=== PATIENT | female | born 1960 | race Caucasian/White ===

== ENCOUNTER 2021-01-30 18:59 | Inpatient (IN) ==
[2021-01-30 19:09] VITALS: BMI 24.9
--- NOTE | 2021-01-30 20:19 | DR.SOBA ---
HPI Time Seen Time Seen by Provider: 01/30/21 20:16 Primary Care Physician Primary Care Physician: WENDI Complaints Chief Complaint:: PT IN ED VIA WHEELCHAIR WITH C/O LOW OXYGEN SATURATION. PT O2 SAT 56-61% ON ROOM AIR AT HOME. PT O2 SAT IN TRIAGE 68% ON ROOM AIR. PLACED ON 5L/NC SAT UP TO 89-90%. COVID-19 Coronavirus risk:travel/contact w/high risk person: Yes Has patient experienced Coronavirus symptoms: Yes Coronavirus symptoms experienced: Coughing and Shortness of Breath Source History Provided: Patient and Family Member Mode of Arrival Mode of Arrival: Wheelchair Timing Onset of Chief Complaint: 01/30/21 PMH PMH Past Medical History: Yes Past Medical History: Coronary Artery Disease, Diabetes, Hypertension and DC Past Surgical History: Yes Surgical History: Angioplasty/Stents and Cholecystectomy Family History History of Family Medical Conditions: Yes Family Medical History: [place], Heart Failure and Hypertension Social History Does patient currently use any type of tobacco product: No Have you used tobacco products in the last 12 months: No Type of Tobacco Use: None Does any household member use tobacco: No Alcohol Use: None Do you use any recreational Drugs:: No Lives With: Family Lives Where: Home Travel Risk Coronavirus risk:travel/contact w/high risk person: Yes Has patient experienced Coronavirus symptoms: Yes Coronavirus symptoms experienced: Coughing and Shortness of Breath Infectious screening In the last 2 months have you had wt loss of >10#?: NO Have you had fever, night sweats or hemotysis?: No Have you traveled outside the country in the last 6 months?: No Isolation: Droplet PE Vital Signs Vitals: Temperature 97.4 F Pulse Rate [Left Brachial] 54 Pulse Rate 54 Respiratory Rate 21 Blood Pressure [Left Arm] 205/94 Blood Pressure 171/102 O2 Sat by Pulse Oximetry 94 ROR Labs Reviewed Result Diagrams: 01/30/21 20:34 01/30/21 20:34 Laboratory: WBC 5.9 X10^3/uL (3.6-10.0) 01/30/21 20:34 RBC 4.86 X10^6/uL (3.5-5.4) 01/30/21 20:34 Hgb 14.7 g/dL (12.0-16.0) 01/30/21 20:34 Hct 43.9 % (36.0-47.0) 01/30/21 20:34 MCV 90.2 fL (80.0-100.0) 01/30/21 20:34 MCH 30.3 pg (27.0-34.0) 01/30/21 20: MCHC 33.6 g/dL (33.0-35.0) 01/30/21 20:34 RDW 13.8 % (11.6-16.5) 01/30/21 20:34 Plt Count 286 X10^3/uL (150.0-450.0) 01/30/21 20:34 MPV 7.0 fL (7.4-11.0) L 01/30/21 20:34 Neut % (Auto) 82.1 % (42.0-75.0) H 01/30/21 20: Lymph % (Auto) 12.4 % (21.0-51.0) L 01/30/21 20:34 [place] % (Auto) 5.4 % (0.0-13.0) 01/30/21 20:34 Eos % (Auto) 0.0 % (0.9-2.9) L 01/30/21 20:34 Baso % (Auto) 0.1 % (0.2-1.0) L 01/30/21 20:34 Neut # (Auto) 4.9 x10^3/uL (2.2-4.8) H 01/30/21 20:34 Lymph # (Auto) 0.7 X10^3/uL (1.3-2.9) L 01/30/21 20:34 [place] # (Auto) 0.3 x10^3/uL (0.3-0.8) 01/30/21 20:34 Eos # (Auto) 0.0 x10^3/uL (0.0-0.2) 01/30/21 20:34 Baso # (Auto) 0.0 X10^3/uL (0.0-0.1) 01/30/21 20:34 Absolute Nucleated RBC 0.1 /100WBC 01/30/21 20:34 Sample Site Lrad 01/30/21 22:37 ABG pH 7.560 (7.35-7.45) H* 01/30/21 22:37 ABG pCO2 31.0 mmHg (35.0-45.0) L 01/30/21 22:37 ABG pO2 98.0 mmHg (80.0-100.0) 01/30/21 22:37 ABG HCO3 27.8 mmol/L (22-26) H 01/30/21 22:37 ABG O2 Saturation 98.0 % (90-100) 01/30/21 22:37 ABG Base Excess 5.8 mmol/L (-2.0-2.0) H 01/30/21 22:37 Juan Carlos Test Pos 01/30/21 22:37 A-a Gradient 576.0 mmHg 01/30/21 22:37 FiO2 100.0 01/30/21 22:37 Blood Gas Comments Narciso well 01/30/21 22:37 Sodium 136 mmol/L (136-145) 01/30/21 20:34 Corrected Sodium 144 mmol/L (136-145) 01/30/21 20:34 Potassium 4.3 mmol/L (3.5-5.1) 01/30/21 20:34 Chloride 98 mmol/L (98-107) 01/30/21 20:34 Carbon Dioxide 28.0 mmol/L (21-32) 01/30/21 20:34 BUN 37 mg/dL (7-18) H 01/30/21 20:34 Creatinine 1.26 mg/dL (0.55-1.02) H 01/30/21 20:34 Est GFR (MDRD) Af Amer 56 (>60) L 01/30/21 20:34 Est GFR (MDRD) Non-Af 46 (>60) L 01/30/21 20:34 Glucose 415 mg/dL (65-99) H 01/30/21 20:34 Calcium 9.7 mg/dL (8.5-10.1) 01/30/21 20:34 Corrected Calcium 11.0 mg/dL (8.5-10.1) H 01/30/21 20:34 Total Bilirubin 0.30 mg/dL (0.2-1.0) 01/30/21 20:34 AST 68 Units/L (15-37) H 01/30/21 20:34 ALT 52 Units/L (12-78) 01/30/21 20:34 Alkaline Phosphatase 70 Units/L (46-116) 01/30/21 20:34 Total Protein 7.8 g/dL (6.4-8.2) 01/30/21 20:34 Albumin 2.4 g/dL (3.4-5.0) L 01/30/21 20:34 Globulin 5.4 g/dL (2.5-4.5) H 01/30/21 20:34 Albumin/Globulin Ratio 0.4 Ratio (1.1-2.1) L 01/30/21 20:34 Opioid Opioid Risk Tool Age (Dario box if 16-45): No History of Preadolescent Sexual Abuse: No Total: 0 Total Score Risk Category: Low Risk Copyright: Milton AVALOS predicting aberrant behaviors Diagnosis Discharge Problem: Hypoxia, COVID-19 virus infection Pneumonia Qualifiers: Pneumonia type: due to unspecified organism Laterality: bilateral Lung location: lower lobe of lung Qualified Code(s): J18.9 - Pneumonia, unspecified organism Instructions Forms: Precautions for COVID19 Patient Portal Social Distancing
[2021-01-30 20:51] LABS: BASOPHILS % (AUTO) 0.1 % (0.2-1.0); HEMATOCRIT 43.9 % (36.0-47.0); HEMOGLOBIN 14.7 g/dL (12.0-16.0); LYMPHOCYTES # (AUTO) 0.7 X10^3/uL (1.3-2.9); LYMPHOCYTES % (AUTO) 12.4 % (21.0-51.0); MEAN CORPUSCULAR HEMOGLOBIN 30.3 pg (27.0-34.0); MEAN CORPUSCULAR HGB CONC 33.6 g/dL (33.0-35.0); MEAN CORPUSCULAR VOLUME 90.2 fL (80.0-100.0); MONOCYTES # (AUTO) 0.3 x10^3/uL (0.3-0.8); MONOCYTES % (AUTO) 5.4 % (0.0-13.0); NEUTROPHILS # (AUTO) 4.9 x10^3/uL (2.2-4.8); NEUTROPHILS % (AUTO) 82.1 % (42.0-75.0); PLATELET COUNT 286 X10^3/uL (150.0-450.0); RED BLOOD COUNT 4.86 X10^6/uL (3.5-5.4); RED CELL DISTRIBUTION WIDTH 13.8 % (11.6-16.5); WHITE BLOOD COUNT 5.9 X10^3/uL (3.6-10.0)
--- NOTE | 2021-01-30 20:59 | RAD ---
STUDY: CHEST, 1 VIEWCOMPARISON: NoneHISTORY: PT IN ED VIA WHEELCHAIR WITH C/O LOW OXYGEN SATURATION. PT O2 SAT 56-61% ON ROOM AIR AT HOME. PT O2 SAT IN TRIAGE 68% ON ROOM AIR. PLACED ON 5L/NC SAT UP TO 89-90%.FINDINGS:Interval development of worsening alveolar airspace disease throughout the right lung and left lower lung zone.Cardiomediastinal contour is stable.No pleural effusion or gross pneumothorax is seen. Trachea is midline.IMPRESSION:Interval development of worsening alveolar airspace disease throughout the right lung and left lower lung zone. This is worrisome for progression of COVID-19 pneumonia.Electronically signed by: Luca Aquino (Jan 30, 2021 20:57:56)
[2021-01-30 21:02] LABS: ALBUMIN 2.4 g/dL (3.4-5.0); CALCIUM 9.7 mg/dL (8.5-10.1); CREATININE 1.26 mg/dL (0.55-1.02); TOTAL PROTEIN 7.8 g/dL (6.4-8.2)
[2021-01-30 22:45] LABS: ABG BASE EXCESS 5.8 mmol/L (-2.0-2.0); ABG HCO3 27.8 mmol/L (22-26)
[2021-01-30 22:46] LABS: ABG ALLEN TEST POS
[2021-01-31] MEDS ORDERED: REMDESIVIR 200 MG in NS 250 ML IV 250 ML IV ONE (07:02)
[2021-01-31 08:25] LABS: BASOPHILS % (AUTO) 0.1 % (0.2-1.0); HEMATOCRIT 43.1 % (36.0-47.0); HEMOGLOBIN 14.6 g/dL (12.0-16.0); LYMPHOCYTES # (AUTO) 0.9 X10^3/uL (1.3-2.9); LYMPHOCYTES % (AUTO) 16.4 % (21.0-51.0); MEAN CORPUSCULAR HEMOGLOBIN 30.6 pg (27.0-34.0); MEAN CORPUSCULAR HGB CONC 33.8 g/dL (33.0-35.0); MEAN CORPUSCULAR VOLUME 90.5 fL (80.0-100.0); MEAN PLATELET VOLUME 6.9 fL (7.4-11.0); MONOCYTES # (AUTO) 0.4 x10^3/uL (0.3-0.8); MONOCYTES % (AUTO) 7.9 % (0.0-13.0); NEUTROPHILS % (AUTO) 75.6 % (42.0-75.0); PLATELET COUNT 331 X10^3/uL (150.0-450.0); RED BLOOD COUNT 4.76 X10^6/uL (3.5-5.4); RED CELL DISTRIBUTION WIDTH 13.8 % (11.6-16.5); WHITE BLOOD COUNT 5.3 X10^3/uL (3.6-10.0)
[2021-01-31 08:30] LABS: ALANINE AMINOTRANSFERASE 53 Units/L (12-78); ALBUMIN 2.4 g/dL (3.4-5.0); ALKALINE PHOSPHATASE 66 Units/L (46-116); ASPARTATE AMINO TRANSFERASE 53 Units/L (15-37); BLOOD UREA NITROGEN 38 mg/dL (7-18); CALCIUM 9.8 mg/dL (8.5-10.1); CARBON DIOXIDE 32.3 mmol/L (21-32); CHLORIDE 100 mmol/L (98-107); COR CA(FOR HYPOALB) 11.1 mg/dL (8.5-10.1); COR NA(FOR HYPERGLY) 147 mmol/L (136-145); CREATININE 1.17 mg/dL (0.55-1.02); SODIUM 140 mmol/L (136-145); TOTAL PROTEIN 7.5 g/dL (6.4-8.2); eGFR NON BLACK RACES 50 (>60)
[2021-01-31] MEDS ORDERED: PEPCID TAB 40 MG ONE (08:41)
[2021-01-31] MEDS ORDERED: VITAMIN D3 125 mcg (5,000 UNITS) ONE (08:41)
[2021-01-31] MEDS ORDERED: ZINC SULFATE ONE (08:41)
[2021-01-31] MEDS ORDERED: TRICOR TAB 160 MG ONE (08:41)
[2021-01-31] MEDS ORDERED: REMDESIVIR IV ONE (08:41)
[2021-01-31] MEDS ORDERED: NS 100 ML IV 100 ML ONE ×3 (08:42→16:33)
[2021-01-31] MEDS ORDERED: NS 1000 ML 1,000 ML ONE (08:42)
[2021-01-31] MEDS ORDERED: NS 100 ML IV + SPIKE MINIBAG* 100 ML IV ONE (08:42)
[2021-01-31] MEDS ORDERED: ZOSYN VIAL 3.375 GRAMS IV ONE (08:42)
[2021-01-31] MEDS ORDERED: LOVENOX INJ 30 MG SYR SC ONE (08:42)
[2021-01-31] MEDS ORDERED: NS 250 ML IV 250 ML IV ONE (08:43)
[2021-01-31] MEDS ORDERED: ASCORBIC ACID INJ MULTI-DOSE VIAL IV ONE ×2 (08:44→15:03)
[2021-01-31] MEDS: NS 1000 ML 1,000 ML IV SCH ×2 (08:48→08:56)
[2021-01-31] MEDS: ZOSYN VIAL 3.375 GRAMS 3.375 G in NS 100 ML IV + SPIKE MINIBAG* 100 ML IV SCH ×3 (08:49→21:40)
[2021-01-31] MEDS: ASCORBIC ACID INJ MULTI-DOSE VIAL 1,500 MG in NS 100 ML IV 100 ML IV SCH ×3 (08:51→21:36)
[2021-01-31] MEDS: ZINC SULFATE PO SCH ×2 (08:51→21:40)
[2021-01-31] MEDS: TRICOR TAB 160 MG PO SCH (08:53)
[2021-01-31] MEDS: LOVENOX INJ 30 MG SYR SC SCH ×2 (08:56→21:39)
[2021-01-31] MEDS ORDERED: ROBITUSSIN DM ONE ×2 (08:58→15:02)
[2021-01-31] MEDS ORDERED: PEPCID TAB 20 MG ONE (08:58)
[2021-01-31] MEDS ORDERED: VITAMIN D (1.25MG) PO SCH (09:00)
[2021-01-31] MEDS ORDERED: PEPCID TAB 40 MG PO SCH (09:00)
[2021-01-31] MEDS ORDERED: VITAMIN A PO SCH (09:00)
[2021-01-31] MEDS ORDERED: BROVANA IN SCH (09:00)
[2021-01-31] MEDS ORDERED: PULMICORT NEB TX 0.5 MG NEB SCH (09:00)
[2021-01-31] MEDS ORDERED: ZITHROMAX INJ 500 MG VIAL IV ONE (09:02)
[2021-01-31] MEDS: PEPCID TAB 20 MG PO SCH (09:03)
[2021-01-31] MEDS: ROBITUSSIN DM PO SCH ×5 (09:03→21:40)
[2021-01-31] MEDS: ZITHROMAX INJ 500 MG VIAL 500 MG in NS 250 ML IV 250 ML IV SCH (09:08)
[2021-01-31] MEDS: REMDESIVIR 100 MG in NS 100 ML IV + SPIKE MINIBAG* 120 ML IV SCH (09:10)
[2021-01-31] MEDS: BROVANA IN SCH ×2 (09:35→20:52)
[2021-01-31] MEDS: PULMICORT NEB TX 0.5 MG NEB SCH ×2 (09:35→20:52)
[2021-01-31] MEDS ORDERED: LOPRESSOR INJ 5 MG AMP IVP ONE (11:41)
[2021-01-31] MEDS ORDERED: HumuLIN R ONE (12:28)
[2021-01-31] MEDS: HumuLIN R SC PRN ×4 (12:29→21:41)
[2021-01-31 13:04] LABS: CKMB % 4.6 % (<4); CREATINE KINASE 22 Units/L (26-192); CREATINE KINASE MB < 1.0 ng/mL (0-4.0); TROPONIN I < 0.02 ng/mL (0-1.5)
[2021-01-31] MEDS ORDERED: VERSED ONE (13:41)
[2021-01-31] MEDS ORDERED: XYLOCAINE 1 % (PLAIN) ONE ×2 (14:41→15:46)
[2021-01-31] MEDS ORDERED: PLAVIX ONE (15:01)
[2021-01-31] MEDS ORDERED: ZESTRIL TAB 20 MG ONE (15:02)
[2021-01-31] MEDS ORDERED: SOLU-Medrol 125 MG VIAL ONE (15:02)
[2021-01-31] MEDS: PLAVIX PO SCH ×2 (15:05→15:11)
[2021-01-31] MEDS: GLUCOPHAGE PO SCH ×2 (15:05→15:06)
[2021-01-31] MEDS: SOLU-Medrol 125 MG VIAL IVP SCH ×3 (15:06→21:40)
[2021-01-31] MEDS: ZESTRIL TAB 40 MG PO SCH (15:06)
[2021-01-31] MEDS ORDERED: NS 50 ML IV 50 ML IV ONE (15:13)
[2021-01-31] MEDS ORDERED: APRESOLINE INJ 20 MG VIAL ONE (16:23)
[2021-01-31] MEDS: APRESOLINE INJ 20 MG VIAL IVP PRN (16:47)
--- NOTE | 2021-01-31 17:14 | CT ---
CTA CHESTCLINICAL INDICATION: FaciaPROCEDURE: Non gated axial images of the chest were obtained with intravenous contrast according to pulmonary embolism protocol. MIPS were reconstructed Dose reduction techniques including Automated Exposure Control (AEC) and adjustment of mA and kV were utlized.COMPARISON:NoneFINDINGS:No evidence of a pulmonary embolism to the level of the segmental pulmonary arteries.Cardiomegaly. Severe coronary calcification.. No pericardial effusion . Patchy bilateral ground-glass opacities are present. No suspicious mediastinal or axillary lymph nodes. More consolidative opacities at the lung bases..Airways are patent . No suspicious pulmonary nodules or masses .Limited images of the upper abdomen are unremarkable.No aggressive osseous lesions.IMPRESSION:1. No evidence of pulmonary embolism.2. Patchy bilateral ground-glass opacities consistent with acute, atypical infection including viral etiologies.Electronically signed by: MADELINE HAIRSTON (Jan 31, 2021 17:12:04)
--- NOTE | 2021-01-31 18:11 | DR.H&P ---
H&P - History & Physical for Day of: H&P Date: 01/31/21 - Chief Complaint Chief Complaint: sob, ccc, fever, covid 19+ - History of Present Illness History of Present Illness: PT IN ED VIA WHEELCHAIR WITH C/O LOW OXYGEN SATURATION. PT O2 SAT 56-61% ON ROOM AIR AT HOME. PT O2 SAT IN TRIAGE 68% ON ROOM AIR. PLACED ON 5L/NC SAT UP TO 89-90%. PT IS COVID 19+ WITH PNEUMONIA. PT ADMITTED FOR TREATMENT OF ACUTE ILLNESS. - Past Medical History Past Medical History: Anxiety, Arthritis, Coronary Artery Disease, Diabetes, Hypertension, AR - Past Surgical History Surgical History: Angioplasty/Stents, Cholecystectomy - Family History Family Medical History: AR, Heart Failure, Hypertension - Social History Does patient currently use any type of tobacco product: No Have you used tobacco products in the last 12 months: No Type of Tobacco Use: None Does any household member use tobacco: No Alcohol Use: None - Medications Home Medications: morphine Allergy (Verified 01/29/21 19:07) CONTINUE taking the following medications alprazolam 0.5 mg PO DAILY 01/31/21 [History] atenolol-chlorthalidone 1 tab PO DAILY 01/31/21 [History] clonidine HCl 0.2 mg PO HS 01/31/21 [History] clopidogrel 75 mg PO DAILY 01/31/21 [History] diclofenac sodium 75 mg PO BID 01/31/21 [History] fenofibrate 160 mg PO DAILY 01/31/21 [History] fluoxetine 20 mg PO DAILY 01/31/21 [History] fluoxetine 20 mg PO DAILY 01/31/21 [History] gabapentin 100 mg PO TID 01/31/21 [History] insulin detemir U-100 [Levemir U-100 Insulin] 100 unit SUBCUT DAILY 01/31/21 [History] lisinopril 40 mg PO DAILY 01/31/21 [History] lovastatin 20 mg PO DAILY 01/31/21 [History] metformin 500 mg PO BID 01/31/21 [History] - Review of Systems Constitutional: Chills, Weakness, Malaise Eyes: No Symptoms Reported ENT: No Symptoms Reported Respiratory: Cough, Shortness of Breath, SOB with Excertion, Sputum, Wheezing Cardiovascular: Chest Pain Gastrointestinal: Nausea Genitourinary: No Symptoms Reported Musculoskeletal: Back Pain Skin: No Symptoms Reported Neurological: No Symptoms Reported - Physical Exam Vital Signs: Temperature 97.4 F Pulse Rate [Left Brachial] 52 Pulse Rate 50 Respiratory Rate 22 Blood Pressure [Left Arm] 198/98 Blood Pressure 208/88 O2 Sat by Pulse Oximetry 91 Oriented: Normal Eyes: Normal Ear: Normal Nose: Normal Throat: Normal Respiratory: RLL Diminished, LLL Diminished Cardiovascular: Tachycardia, Edema : Normal Auscultation: Bowel Sounds: Normal Palpation: Normal Tenderness: Normal Skin: Decreased Turgur Musculoskeletal: Back:Lumbar Psychiatric: Anxiety Affect: Anxious Speech Pattern: Clear, Appropriate - Assessment/Plan (1) Pneumonia due to COVID-19 virus Status: Acute Plan: ADMIT, COVID ISOLATION UNIT. IV REMDESIVIR, IV ATBX, RESP THERAPY. SUPPLEMENTAL O2, CTA CHEST ON ADMISSION. LOVENOX THERAPY, CARDIAC MONITORING. STRICT I&OS, VERIFY HOME MEDICATION. BP CONTROL, BS CONTROL (2) CAD (coronary artery disease) Status: Acute (3) Hypertension Status: Acute (4) Acute hypokalemia Status: Acute - Allergies Allergies/Adverse Reactions: Allergies Allergy/AdvReac Type Severity Reaction Status Date / Time morphine Allergy Verified 01/29/21 19:07
[2021-01-31 18:56] LABS: CKMB % 4.4 % (<4); CREATINE KINASE 23 Units/L (26-192); CREATINE KINASE MB < 1.0 ng/mL (0-4.0); TROPONIN I < 0.02 ng/mL (0-1.5)
[2021-01-31 23:59] LABS: CKMB % 4.4 % (<4); CREATINE KINASE 23 Units/L (26-192); CREATINE KINASE MB < 1.0 ng/mL (0-4.0); TROPONIN I < 0.02 ng/mL (0-1.5)
[2021-02-01] MEDS: APRESOLINE INJ 20 MG VIAL IVP PRN ×3 (00:12→22:42)
[2021-02-01] MEDS: ASCORBIC ACID INJ MULTI-DOSE VIAL 1,500 MG in NS 100 ML IV 100 ML IV SCH ×4 (02:57→21:30)
[2021-02-01] MEDS: SOLU-Medrol 125 MG VIAL IVP SCH ×3 (05:16→21:31)
[2021-02-01] MEDS: ZOSYN VIAL 3.375 GRAMS 3.375 G in NS 100 ML IV + SPIKE MINIBAG* 100 ML IV SCH ×3 (05:17→22:04)
[2021-02-01] MEDS: HumuLIN R SC PRN ×3 (05:42→22:04)
[2021-02-01 07:47] LABS: BASOPHILS % (AUTO) 0.1 % (0.2-1.0); HEMATOCRIT 44.4 % (36.0-47.0); HEMOGLOBIN 14.7 g/dL (12.0-16.0); LYMPHOCYTES # (AUTO) 0.8 X10^3/uL (1.3-2.9); LYMPHOCYTES % (AUTO) 10.8 % (21.0-51.0); MEAN CORPUSCULAR HGB CONC 33.2 g/dL (33.0-35.0); MEAN CORPUSCULAR VOLUME 90.3 fL (80.0-100.0); MEAN PLATELET VOLUME 6.7 fL (7.4-11.0); MONOCYTES # (AUTO) 0.6 x10^3/uL (0.3-0.8); MONOCYTES % (AUTO) 7.9 % (0.0-13.0); NEUTROPHILS # (AUTO) 5.8 x10^3/uL (2.2-4.8); NEUTROPHILS % (AUTO) 81.2 % (42.0-75.0); PLATELET COUNT 453 X10^3/uL (150.0-450.0); RED BLOOD COUNT 4.91 X10^6/uL (3.5-5.4); RED CELL DISTRIBUTION WIDTH 13.7 % (11.6-16.5); WHITE BLOOD COUNT 7.1 X10^3/uL (3.6-10.0)
[2021-02-01 07:57] LABS: ALANINE AMINOTRANSFERASE 54 Units/L (12-78); ALBUMIN 2.5 g/dL (3.4-5.0); ALKALINE PHOSPHATASE 66 Units/L (46-116); ASPARTATE AMINO TRANSFERASE 43 Units/L (15-37); BLOOD UREA NITROGEN 25 mg/dL (7-18); CALCIUM 9.3 mg/dL (8.5-10.1); CARBON DIOXIDE 29.4 mmol/L (21-32); CHLORIDE 103 mmol/L (98-107); COR CA(FOR HYPOALB) 10.5 mg/dL (8.5-10.1); COR NA(FOR HYPERGLY) 149 mmol/L (136-145); CREATININE 1.06 mg/dL (0.55-1.02); SODIUM 144 mmol/L (136-145); TOTAL PROTEIN 7.3 g/dL (6.4-8.2); eGFR NON BLACK RACES 57 (>60)
[2021-02-01] MEDS ORDERED: LEVEMIR SC ONE (08:27)
[2021-02-01 08:45] LABS: HEMOGLOBIN A1C 11.9 %
[2021-02-01] MEDS ORDERED: REMDESIVIR 100 MG in NS 100 ML IV + SPIKE MINIBAG* 120 ML IV SCH (09:00)
[2021-02-01] MEDS: REMDESIVIR 100 MG in NS 100 ML IV + SPIKE MINIBAG* 120 ML IV SCH (09:05)
[2021-02-01] MEDS: ZITHROMAX INJ 500 MG VIAL 500 MG in NS 250 ML IV 250 ML IV SCH (09:07)
[2021-02-01] MEDS: LIPITOR TAB 10 MG PO SCH (09:08)
[2021-02-01] MEDS: LOVENOX INJ 30 MG SYR SC SCH ×2 (09:08→21:30)
[2021-02-01] MEDS: ZESTRIL TAB 40 MG PO SCH (09:08)
[2021-02-01] MEDS: PLAVIX PO SCH (09:08)
[2021-02-01] MEDS: ZINC SULFATE PO SCH ×2 (09:08→21:30)
[2021-02-01] MEDS: PEPCID TAB 20 MG PO SCH (09:08)
[2021-02-01] MEDS: ROBITUSSIN DM PO SCH ×4 (09:09→21:30)
[2021-02-01] MEDS: TRICOR TAB 160 MG PO SCH ×2 (09:09→18:31)
[2021-02-01] MEDS: BROVANA IN SCH ×2 (09:37→21:00)
[2021-02-01] MEDS: PULMICORT NEB TX 0.5 MG NEB SCH ×2 (09:37→21:00)
[2021-02-01] MEDS: NS 1000 ML 1,000 ML IV SCH (11:22)
[2021-02-01 14:47] LABS: ABG BASE EXCESS 10.2 mmol/L (-2.0-2.0)
[2021-02-01 14:50] LABS: ABG HCO3 33.1 mmol/L (22-26)
[2021-02-01] MEDS ORDERED: BENADRYL INJ 50 MG VIAL IVP PRN (17:46)
[2021-02-01] MEDS ORDERED: LEVEMIR SC SCH (18:00)
[2021-02-01] MEDS: NORVASC TAB 5 MG PO SCH (18:30)
[2021-02-01] MEDS: PROTONIX INJ 40 MG VIAL IVP SCH (18:30)
[2021-02-01] MEDS: PROzac PO SCH (18:31)
[2021-02-01] MEDS ORDERED: POTASSIUM CHLORIDE LIQ 20 MEQ UDC PO PRN (19:19)
[2021-02-01] MEDS ORDERED: MICRO K EXTEN CAP 10 MEQ PO PRN (19:19)
[2021-02-01] MEDS ORDERED: POTASSIUM CHL 40 MEQ/NS 0.45% 500 ML IV PRN (19:19)
[2021-02-01] MEDS ORDERED: POTASSIUM CHL 60 MEQ/NS 0.45% 500 ML IV PRN (19:19)
[2021-02-01] MEDS ORDERED: SNACK - Diabetic Appropriate PO SCH (20:00)
[2021-02-01] MEDS: SNACK - Diabetic Appropriate PO SCH (20:11)
[2021-02-01] MEDS: K-DUR TAB 20 MEQ PO PRN (21:31)
[2021-02-02] MEDS: XANAX PO PRN ×2 (00:03→22:21)
[2021-02-02] MEDS: ASCORBIC ACID INJ MULTI-DOSE VIAL 1,500 MG in NS 100 ML IV 100 ML IV SCH ×4 (02:25→21:00)
[2021-02-02] MEDS: APRESOLINE INJ 20 MG VIAL IVP PRN ×3 (03:50→21:47)
[2021-02-02] MEDS: ZOSYN VIAL 3.375 GRAMS 3.375 G in NS 100 ML IV + SPIKE MINIBAG* 100 ML IV SCH ×3 (06:05→21:53)
[2021-02-02] MEDS: SOLU-Medrol 125 MG VIAL IVP SCH ×3 (06:05→21:53)
[2021-02-02] MEDS: NS 1000 ML 1,000 ML IV SCH ×2 (06:06→21:10)
[2021-02-02] MEDS: HumuLIN R SC PRN ×4 (06:06→21:53)
[2021-02-02 06:54] LABS: BASOPHILS % (AUTO) 0.1 % (0.2-1.0); HEMATOCRIT 40.4 % (36.0-47.0); HEMOGLOBIN 13.6 g/dL (12.0-16.0); LYMPHOCYTES # (AUTO) 0.6 X10^3/uL (1.3-2.9); LYMPHOCYTES % (AUTO) 8.7 % (21.0-51.0); MEAN CORPUSCULAR HEMOGLOBIN 30.2 pg (27.0-34.0); MEAN CORPUSCULAR HGB CONC 33.6 g/dL (33.0-35.0); MEAN CORPUSCULAR VOLUME 89.9 fL (80.0-100.0); MEAN PLATELET VOLUME 6.7 fL (7.4-11.0); MONOCYTES # (AUTO) 0.7 x10^3/uL (0.3-0.8); MONOCYTES % (AUTO) 10.3 % (0.0-13.0); NEUTROPHILS # (AUTO) 5.6 x10^3/uL (2.2-4.8); NEUTROPHILS % (AUTO) 80.9 % (42.0-75.0); PLATELET COUNT 491 X10^3/uL (150.0-450.0); RED BLOOD COUNT 4.49 X10^6/uL (3.5-5.4); RED CELL DISTRIBUTION WIDTH 13.8 % (11.6-16.5)
[2021-02-02 07:29] LABS: ALANINE AMINOTRANSFERASE 43 Units/L (12-78); ALBUMIN 2.4 g/dL (3.4-5.0); ALKALINE PHOSPHATASE 62 Units/L (46-116); ASPARTATE AMINO TRANSFERASE 37 Units/L (15-37); BLOOD UREA NITROGEN 19 mg/dL (7-18); CALCIUM 8.7 mg/dL (8.5-10.1); CHLORIDE 108 mmol/L (98-107); COR NA(FOR HYPERGLY) 152 mmol/L (136-145); CREATININE 0.89 mg/dL (0.55-1.02); SODIUM 146 mmol/L (136-145); TOTAL PROTEIN 6.7 g/dL (6.4-8.2); eGFR NON BLACK RACES > 60 (>60)
[2021-02-02] MEDS: LOVENOX INJ 30 MG SYR SC SCH ×2 (08:53→21:52)
[2021-02-02] MEDS: ROBITUSSIN DM PO SCH ×4 (08:53→21:00)
[2021-02-02] MEDS: PROzac PO SCH (08:54)
[2021-02-02] MEDS: ZINC SULFATE PO SCH ×2 (08:54→21:00)
[2021-02-02] MEDS: PLAVIX PO SCH (08:56)
[2021-02-02] MEDS: ZESTRIL TAB 40 MG PO SCH (08:57)
[2021-02-02] MEDS: LIPITOR TAB 10 MG PO SCH (08:57)
[2021-02-02] MEDS: NORVASC TAB 5 MG PO SCH (08:58)
[2021-02-02] MEDS: GLUCOPHAGE PO SCH ×2 (08:58→21:00)
[2021-02-02] MEDS: REMDESIVIR 100 MG in NS 100 ML IV + SPIKE MINIBAG* 120 ML IV SCH (08:59)
[2021-02-02] MEDS: PROTONIX INJ 40 MG VIAL IVP SCH (08:59)
[2021-02-02] MEDS: TRICOR TAB 160 MG PO SCH (09:00)
[2021-02-02] MEDS: VITAMIN A PO SCH (09:05)
[2021-02-02] MEDS: LEVEMIR SC SCH (09:05)
[2021-02-02] MEDS: VITAMIN D3 125 mcg (5,000 UNITS) PO SCH (09:06)
--- NOTE | 2021-02-02 09:13 | RAD ---
HISTORYCOVID, SOBSTUDYCHEST x-ray, 1 VIEWCOMPARISONX-ray 01/30/2021FINDINGSImproved inspiration compared to prior study. Persistent bilateral pneumonia is likely very similar to prior study. Heart is normal in size. No pneumothorax or pleural effusion is seen. Normal variant azygos lobe is seen.IMPRESSIONPersistent moderate bilateral COVID-19 pneumonia.Electronically signed by: Gaurav Baez (Feb 02, 2021 09:12:20)
[2021-02-02] MEDS: BROVANA IN SCH ×2 (09:31→20:50)
[2021-02-02] MEDS: PULMICORT NEB TX 0.5 MG NEB SCH ×2 (09:31→20:50)
[2021-02-02] MEDS: ZITHROMAX INJ 500 MG VIAL 500 MG in NS 250 ML IV 250 ML IV SCH (10:55)
[2021-02-02] MEDS: SNACK - Diabetic Appropriate PO SCH (19:45)
[2021-02-02] MEDS ORDERED: GLUCOPHAGE ONE (20:34)
[2021-02-03] MEDS: ASCORBIC ACID INJ MULTI-DOSE VIAL 1,500 MG in NS 100 ML IV 100 ML IV SCH ×4 (02:14→21:51)
[2021-02-03] MEDS: ZOSYN VIAL 3.375 GRAMS 3.375 G in NS 100 ML IV + SPIKE MINIBAG* 100 ML IV SCH ×3 (05:38→21:51)
[2021-02-03] MEDS: SOLU-Medrol 125 MG VIAL IVP SCH ×3 (05:38→21:49)
[2021-02-03] MEDS: HumuLIN R SC PRN ×3 (05:38→17:00)
[2021-02-03 06:26] LABS: BASOPHILS % (AUTO) 0.1 % (0.2-1.0); HEMOGLOBIN 12.7 g/dL (12.0-16.0); LYMPHOCYTES # (AUTO) 0.7 X10^3/uL (1.3-2.9); LYMPHOCYTES % (AUTO) 11.4 % (21.0-51.0); MEAN CORPUSCULAR HEMOGLOBIN 30.3 pg (27.0-34.0); MEAN CORPUSCULAR HGB CONC 33.6 g/dL (33.0-35.0); MEAN CORPUSCULAR VOLUME 90.3 fL (80.0-100.0); MEAN PLATELET VOLUME 6.5 fL (7.4-11.0); MONOCYTES # (AUTO) 0.6 x10^3/uL (0.3-0.8); NEUTROPHILS # (AUTO) 5.1 x10^3/uL (2.2-4.8); NEUTROPHILS % (AUTO) 79.5 % (42.0-75.0); PLATELET COUNT 472 X10^3/uL (150.0-450.0); RED CELL DISTRIBUTION WIDTH 13.7 % (11.6-16.5); WHITE BLOOD COUNT 6.5 X10^3/uL (3.6-10.0)
[2021-02-03 06:38] LABS: ALANINE AMINOTRANSFERASE 36 Units/L (12-78); ALBUMIN 2.4 g/dL (3.4-5.0); ALKALINE PHOSPHATASE 51 Units/L (46-116); ASPARTATE AMINO TRANSFERASE 27 Units/L (15-37); BLOOD UREA NITROGEN 18 mg/dL (7-18); CALCIUM 8.5 mg/dL (8.5-10.1); CARBON DIOXIDE 35.1 mmol/L (21-32); CHLORIDE 109 mmol/L (98-107); COR CA(FOR HYPOALB) 9.8 mg/dL (8.5-10.1); COR NA(FOR HYPERGLY) 151 mmol/L (136-145); CREATININE 0.87 mg/dL (0.55-1.02); SODIUM 148 mmol/L (136-145); TOTAL PROTEIN 6.2 g/dL (6.4-8.2); eGFR NON BLACK RACES > 60 (>60)
[2021-02-03] MEDS ORDERED: GLUCOPHAGE ONE ×2 (07:14→21:00)
--- NOTE | 2021-02-03 07:33 | RAD ---
HISTORYFollow-up COVID-19STUDYChest AP [id number]/25/2021FINDINGSHypo inflation accentuates the heart size. It is likely upper limits normal. Coronary artery stent is visualized. Marisabel are normal. Bilateral interstitial and right-sided ground-glass infiltrates are again identified. Interstitial infiltrates are unchanged. The peripheral ground-glass infiltrates in the right lung have increased slightly. No pleural effusions are identified. Bony thorax is unremarkable.IMPRESSIONNo change bilateral interstitial infiltratesIncreasing peripheral right lung ground-glass infiltratesElectronically signed by: KISHA ALONZO (Feb 03, 2021 07:31:26)
[2021-02-03] MEDS: BROVANA IN SCH ×2 (09:11→21:00)
[2021-02-03] MEDS: PULMICORT NEB TX 0.5 MG NEB SCH ×2 (09:11→21:00)
[2021-02-03] MEDS: PROzac PO SCH (09:11)
[2021-02-03] MEDS: GLUCOPHAGE PO SCH ×2 (09:12→21:50)
[2021-02-03] MEDS: VITAMIN D3 125 mcg (5,000 UNITS) PO SCH (09:12)
[2021-02-03] MEDS: LEVEMIR SC SCH (09:13)
[2021-02-03] MEDS: LOVENOX INJ 30 MG SYR SC SCH ×2 (09:13→21:15)
[2021-02-03] MEDS: NORVASC TAB 5 MG PO SCH (09:14)
[2021-02-03] MEDS: ZESTRIL TAB 40 MG PO SCH (09:15)
[2021-02-03] MEDS: LIPITOR TAB 10 MG PO SCH (09:15)
[2021-02-03] MEDS: PLAVIX PO SCH (09:16)
[2021-02-03] MEDS: ROBITUSSIN DM PO SCH ×4 (09:16→21:49)
[2021-02-03] MEDS: PROTONIX INJ 40 MG VIAL IVP SCH (09:16)
[2021-02-03] MEDS: TRICOR TAB 160 MG PO SCH (09:17)
[2021-02-03] MEDS: VITAMIN A PO SCH (09:17)
[2021-02-03] MEDS: XANAX PO PRN (09:18)
[2021-02-03] MEDS: NS 1000 ML 1,000 ML IV SCH (10:27)
[2021-02-03] MEDS: REMDESIVIR 100 MG in NS 100 ML IV + SPIKE MINIBAG* 120 ML IV SCH (10:33)
[2021-02-03] MEDS: ZINC SULFATE PO SCH ×2 (10:34→21:50)
[2021-02-03] MEDS: ZITHROMAX INJ 500 MG VIAL 500 MG in NS 250 ML IV 250 ML IV SCH (11:39)
[2021-02-03] MEDS ORDERED: NS 1/2 1000 ML IV 1,000 ML IV ONE (12:51)
[2021-02-03] MEDS: NS 1/2 1000 ML IV 1,000 ML IV SCH (12:57)
[2021-02-03] MEDS: K-DUR TAB 20 MEQ PO PRN (15:53)
[2021-02-03] MEDS: SNACK - Diabetic Appropriate PO SCH (20:30)
[2021-02-04] MEDS: ASCORBIC ACID INJ MULTI-DOSE VIAL 1,500 MG in NS 100 ML IV 100 ML IV SCH ×4 (02:56→21:25)
[2021-02-04] MEDS: SOLU-Medrol 125 MG VIAL IVP SCH ×3 (05:26→21:25)
[2021-02-04] MEDS: ZOSYN VIAL 3.375 GRAMS 3.375 G in NS 100 ML IV + SPIKE MINIBAG* 100 ML IV SCH ×3 (05:26→21:25)
[2021-02-04 05:37] LABS: ALANINE AMINOTRANSFERASE 29 Units/L (12-78); ALBUMIN 2.1 g/dL (3.4-5.0); ALKALINE PHOSPHATASE 45 Units/L (46-116); ASPARTATE AMINO TRANSFERASE 27 Units/L (15-37); BLOOD UREA NITROGEN 19 mg/dL (7-18); CHLORIDE 102 mmol/L (98-107); COR CA(FOR HYPOALB) 9.5 mg/dL (8.5-10.1); COR NA(FOR HYPERGLY) 142 mmol/L (136-145); CREATININE 0.95 mg/dL (0.55-1.02); SODIUM 140 mmol/L (136-145); TOTAL PROTEIN 5.5 g/dL (6.4-8.2); eGFR NON BLACK RACES > 60 (>60)
[2021-02-04 06:11] LABS: BASOPHILS % (AUTO) 0.1 % (0.2-1.0); HEMATOCRIT 35.2 % (36.0-47.0); HEMOGLOBIN 11.9 g/dL (12.0-16.0); LYMPHOCYTES # (AUTO) 0.5 X10^3/uL (1.3-2.9); LYMPHOCYTES % (AUTO) 7.5 % (21.0-51.0); MEAN CORPUSCULAR HEMOGLOBIN 30.1 pg (27.0-34.0); MEAN CORPUSCULAR HGB CONC 33.7 g/dL (33.0-35.0); MEAN CORPUSCULAR VOLUME 89.3 fL (80.0-100.0); MEAN PLATELET VOLUME 6.5 fL (7.4-11.0); MONOCYTES # (AUTO) 0.3 x10^3/uL (0.3-0.8); MONOCYTES % (AUTO) 5.1 % (0.0-13.0); NEUTROPHILS # (AUTO) 5.6 x10^3/uL (2.2-4.8); NEUTROPHILS % (AUTO) 87.3 % (42.0-75.0); PLATELET COUNT 393 X10^3/uL (150.0-450.0); RED BLOOD COUNT 3.94 X10^6/uL (3.5-5.4); RED CELL DISTRIBUTION WIDTH 13.4 % (11.6-16.5); WHITE BLOOD COUNT 6.4 X10^3/uL (3.6-10.0)
--- NOTE | 2021-02-04 06:53 | RAD ---
HISTORYPneumoniaSTUDYPortable AP [id number]/26/2021FINDINGSThere is no change in appearance of heart or lungs. Similar extent and distribution of bilateral pulmonary infiltrates. No additional consolidation, complicating pneumothorax or large pleural effusion.IMPRESSIONNo change in appearance of the chest.Electronically signed by: CHELE RUVALCABA (Feb 04, 2021 06:51:44)
[2021-02-04] MEDS ORDERED: GLUCOPHAGE ONE ×2 (07:42→20:08)
[2021-02-04 07:45] LABS: ABG BASE EXCESS 9.1 mmol/L (-2.0-2.0)
[2021-02-04 07:46] LABS: ABG ALLEN TEST POS; ABG HCO3 33.5 mmol/L (22-26)
[2021-02-04] MEDS: GLUCOPHAGE PO SCH ×2 (08:57→21:26)
[2021-02-04] MEDS: LIPITOR TAB 10 MG PO SCH (08:58)
[2021-02-04] MEDS: LEVEMIR SC SCH (08:58)
[2021-02-04] MEDS: NORVASC TAB 5 MG PO SCH (08:59)
[2021-02-04] MEDS: LOVENOX INJ 30 MG SYR SC SCH ×2 (08:59→21:40)
[2021-02-04] MEDS: PLAVIX PO SCH (08:59)
[2021-02-04] MEDS: PROTONIX INJ 40 MG VIAL IVP SCH (09:00)
[2021-02-04] MEDS: VITAMIN D3 125 mcg (5,000 UNITS) PO SCH (09:01)
[2021-02-04] MEDS: TRICOR TAB 160 MG PO SCH (09:01)
[2021-02-04] MEDS: PROzac PO SCH (09:01)
[2021-02-04] MEDS: VITAMIN A PO SCH (09:01)
[2021-02-04] MEDS: ROBITUSSIN DM PO SCH ×4 (09:01→21:25)
[2021-02-04] MEDS: ZINC SULFATE PO SCH ×2 (09:02→21:26)
[2021-02-04] MEDS: ZITHROMAX INJ 500 MG VIAL 500 MG in NS 250 ML IV 250 ML IV SCH (09:02)
[2021-02-04] MEDS: ZESTRIL TAB 40 MG PO SCH (09:02)
[2021-02-04] MEDS: PULMICORT NEB TX 0.5 MG NEB SCH ×2 (10:10→21:50)
[2021-02-04] MEDS: BROVANA IN SCH ×2 (10:10→21:50)
[2021-02-04] MEDS: HumuLIN R SC PRN (11:39)
[2021-02-04] MEDS: NS 1/2 1000 ML IV 1,000 ML IV SCH (12:59)
[2021-02-04] MEDS: K-DUR TAB 20 MEQ PO PRN (16:56)
[2021-02-04] MEDS: SNACK - Diabetic Appropriate PO SCH (20:25)
[2021-02-05] MEDS: ASCORBIC ACID INJ MULTI-DOSE VIAL 1,500 MG in NS 100 ML IV 100 ML IV SCH ×4 (02:41→20:57)
[2021-02-05 05:32] LABS: ABG BASE EXCESS 11.9 mmol/L (-2.0-2.0)
[2021-02-05] MEDS: SOLU-Medrol 125 MG VIAL IVP SCH ×3 (05:32→20:59)
[2021-02-05] MEDS: ZOSYN VIAL 3.375 GRAMS 3.375 G in NS 100 ML IV + SPIKE MINIBAG* 100 ML IV SCH ×3 (05:32→21:00)
[2021-02-05 05:33] LABS: ABG ALLEN TEST POS; ABG HCO3 35.9 mmol/L (22-26)
[2021-02-05 06:08] LABS: BASOPHILS % (AUTO) 0.2 % (0.2-1.0); HEMATOCRIT 35.7 % (36.0-47.0); HEMOGLOBIN 12.2 g/dL (12.0-16.0); LYMPHOCYTES # (AUTO) 0.4 X10^3/uL (1.3-2.9); LYMPHOCYTES % (AUTO) 5.9 % (21.0-51.0); MEAN CORPUSCULAR HEMOGLOBIN 30.2 pg (27.0-34.0); MEAN CORPUSCULAR HGB CONC 34.1 g/dL (33.0-35.0); MEAN CORPUSCULAR VOLUME 88.6 fL (80.0-100.0); MEAN PLATELET VOLUME 6.7 fL (7.4-11.0); MONOCYTES # (AUTO) 0.4 x10^3/uL (0.3-0.8); MONOCYTES % (AUTO) 5.1 % (0.0-13.0); NEUTROPHILS # (AUTO) 6.3 x10^3/uL (2.2-4.8); NEUTROPHILS % (AUTO) 88.8 % (42.0-75.0); PLATELET COUNT 416 X10^3/uL (150.0-450.0); RED BLOOD COUNT 4.03 X10^6/uL (3.5-5.4); RED CELL DISTRIBUTION WIDTH 13.4 % (11.6-16.5)
[2021-02-05 06:23] LABS: ALANINE AMINOTRANSFERASE 31 Units/L (12-78); ALBUMIN 2.2 g/dL (3.4-5.0); ALKALINE PHOSPHATASE 47 Units/L (46-116); ASPARTATE AMINO TRANSFERASE 30 Units/L (15-37); BLOOD UREA NITROGEN 17 mg/dL (7-18); CARBON DIOXIDE 34.1 mmol/L (21-32); CHLORIDE 105 mmol/L (98-107); COR CA(FOR HYPOALB) 9.4 mg/dL (8.5-10.1); COR NA(FOR HYPERGLY) 145 mmol/L (136-145); CREATININE 0.83 mg/dL (0.55-1.02); SODIUM 144 mmol/L (136-145); TOTAL PROTEIN 5.6 g/dL (6.4-8.2); eGFR NON BLACK RACES > 60 (>60)
--- NOTE | 2021-02-05 07:15 | RAD ---
HISTORYSOBSTUDYPortable AP [id number]/27/2021FINDINGSStable heart size and contour. There is no change in degree or distribution of scattered bilateral pulmonary infiltrates. No additional consolidation, developing pleural fluid or extrapulmonary air identified.IMPRESSIONNo change since 1 day earlier.Electronically signed by: CHELE RUVALCABA (Feb 05, 2021 07:13:05)
[2021-02-05] MEDS: PULMICORT NEB TX 0.5 MG NEB SCH ×2 (09:00→22:00)
[2021-02-05] MEDS: BROVANA IN SCH ×2 (09:00→22:00)
[2021-02-05] MEDS ORDERED: GLUCOPHAGE ONE ×2 (09:26→20:13)
[2021-02-05] MEDS: GLUCOPHAGE PO SCH ×2 (09:53→20:57)
[2021-02-05] MEDS: LIPITOR TAB 10 MG PO SCH (09:53)
[2021-02-05] MEDS: ROBITUSSIN DM PO SCH ×4 (09:53→20:57)
[2021-02-05] MEDS: PLAVIX PO SCH (09:54)
[2021-02-05] MEDS: NORVASC TAB 5 MG PO SCH (09:54)
[2021-02-05] MEDS: ZESTRIL TAB 40 MG PO SCH (09:54)
[2021-02-05] MEDS: LOVENOX INJ 30 MG SYR SC SCH ×2 (09:54→20:55)
[2021-02-05] MEDS: PROzac PO SCH (09:54)
[2021-02-05] MEDS: VITAMIN D3 125 mcg (5,000 UNITS) PO SCH (09:54)
[2021-02-05] MEDS: ZINC SULFATE PO SCH ×2 (09:54→20:59)
[2021-02-05] MEDS: PROTONIX INJ 40 MG VIAL IVP SCH (09:55)
[2021-02-05] MEDS: LEVEMIR SC SCH (09:55)
[2021-02-05] MEDS: ZITHROMAX INJ 500 MG VIAL 500 MG in NS 250 ML IV 250 ML IV SCH (09:56)
[2021-02-05] MEDS: TRICOR TAB 160 MG PO SCH (09:56)
[2021-02-05] MEDS: VITAMIN A PO SCH (09:56)
--- NOTE | 2021-02-05 14:39 | PCM.PROG ---
Progress Note - Progress Note for Day of Date of Exam: 02/05/21 - Subjective Subjective: The patient is a 60-year-old white female, patient of , who is being treated for COVID-19 pneumonia with hypoxia. She has a history of diabetes mellitus, coronary artery disease, and hypertension. She has been on IV antibiotics, respiratory therapy, supplemental oxygen, corticosteroids, and Remdesivir. Today, she is alert and oriented, lying in bed on morning rounds. The patient states that she continues with weakness and shortness of breath. She is currently on heated high flow oxygen with an oxygen sats around 88-93%. On examination, The patient is calm and cooperative this morning.. She continues with diffuse expiratory wheezes. Heart rate is a controlled rate and rhythm at this time. Abdomen is soft and non-tender. Bowel sounds are present times all four quadrants. She has no upper or lower extremity edema noted. Her vitals this morning were: 98.0-78-20-88%-190/90. Labs were obtained. Abnormal lab values include the following: HCT 35.7, POTASSIUM 3.0, CARBON DIOXIDE 34.1, GLUCOSE 153, CALCIUM 8.0, CRP 5.40, BNP 106, TOTAL PROTEIN 5.6, ALBUMIN 2.2. ABG REVEALE D: PH 7.530, PC02 43, P02 63, HC03 35.9, 02 SAT 94, BASE EXCESS 11.9, A-A GRADIENT 176, FI02 41.0. CHEST XRAY REVEALED: Stable heart size and contour. There is no change in degree or distribution of scattered bilateral pulmonary infiltrates. No additional consolidation, developing pleural fluid or e xtrapulmonary air identified. Today, we will continue with IV antibiotics, respiratory therapy, supplemental oxygen, and pulmonary toileting along with corticosteroids. Aggressive PT/RT. We will follow up with AM labs, chest xray, and ABG. TIME SPENT ON CLINICAL ASSESSMENT, REVIEWING LABS AND IMAGING, DECISION MAKING, AND DOCUMENTATION GREATER THAN 45 MINUTES. - Past Medical Family Social History Past Med/Fam/Surg Hx: No changes since H&P Allergies: Allergies morphine Allergy (Verified 01/29/21 19:07) - Review of Systems ROS: No change since H&P - Vital Signs and I&O's Vital Signs: Temperature 98.0 F Pulse Rate [Left Brachial] 78 Pulse Rate 64 Respiratory Rate 20 Blood Pressure [Left Arm] 190/90 Blood Pressure 208/88 O2 Sat by Pulse Oximetry 93 Intake and Output: Intake & Output 02/03/21 02/04/21 02/05/21 02/06/21 11:59 11:59 11:59 11:59 Intake Total 2436 / 2437 2137 / 2137 216 / 216 Balance 2436 / 2436 2137 / 2137 2162 / 2162 - Physical Exam Oriented: Normal Eyes: Normal Ear: Normal Nose: Normal Throat: Normal Respiratory: Generalized, Diminished, Wheezes Cardiovascular: Normal : Normal Auscultation: Bowel Sounds: Normal Palpation: Normal Tenderness: Normal Skin: Decreased Turgur Musculoskeletal: Back:Lumbar Psychiatric: Anxiety Affect: Anxious Speech Pattern: Clear, Appropriate - Laboratory and Diagnostics Result Diagrams: 02/05/21 04:36 02/05/21 04:36 Labs: Laboratory WBC 7.0 X10^3/uL (3.6-10.0) 02/05/21 04:36 RBC 4.03 X10^6/uL (3.5-5.4) 02/05/21 04:36 Hgb 12.2 g/dL (12.0-16.0) 02/05/21 04:36 Hct 35.7 % (36.0-47.0) L 02/05/21 04:36 MCV 88.6 fL (80.0-100.0) 02/05/21 04:36 MCH 30.2 pg (27.0-34.0) 02/05/21 04:36 MCHC 34.1 g/dL (33.0-35.0) 02/05/21 04:36 RDW 13.4 % (11.6-16.5) 02/05/21 04:36 Plt Count 416 X10^3/uL (150.0-450.0) 02/05/21 04:36 MPV 6.7 fL (7.4-11.0) L 02/05/21 04:36 Neut % (Auto) 88.8 % (42.0-75.0) H 02/05/21 04:36 Lymph % (Auto) 5.9 % (21.0-51.0) L 02/05/21 04:36 [place] % (Auto) 5.1 % (0.0-13.0) 02/05/21 04:36 Eos % (Auto) 0.0 % (0.9-2.9) L 02/05/21 04:36 Baso % (Auto) 0.2 % (0.2-1.0) 02/05/21 04:36 Neut # (Auto) 6.3 x10^3/uL (2.2-4.8) H 02/05/21 04:36 Lymph # (Auto) 0.4 X10^3/uL (1.3-2.9) L 02/05/21 04:36 [place] # (Auto) 0.4 x10^3/uL (0.3-0.8) 02/05/21 04:36 Eos # (Auto) 0.0 x10^3/uL (0.0-0.2) 02/05/21 04:36 Baso # (Auto) 0.0 X10^3/uL (0.0-0.1) 02/05/21 04:36 Absolute Nucleated RBC 0.0 /100WBC 02/05/21 04:36 D-Dimer 1.05 ug/ml (0.0-0.57) H* 01/31/21 15:59 Sample Site Rr 02/05/21 05:25 ABG pH 7.530 (7.35-7.45) H 02/05/21 05:25 ABG pCO2 43.0 mmHg (35.0-45.0) 02/05/21 05:25 ABG pO2 63.0 mmHg (80.0-100.0) L 02/05/21 05:25 ABG HCO3 35.9 mmol/L (22-26) H* 02/05/21 05:25 ABG O2 Saturation 94.0 % (90-100) 02/05/21 05:25 ABG Base Excess 11.9 mmol/L (-2.0-2.0) H 02/05/21 05:25 Juan Carlos Test Pos 02/05/21 05:25 A-a Gradient 176.0 mmHg 02/05/21 05:25 FiO2 41.0 02/05/21 05:25 Blood Gas Comments Narciso well gmb 02/05/21 05:25 Sodium 144 mmol/L (136-145) 02/05/21 04:36 Corrected Sodium 145 mmol/L (136-145) 02/05/21 04:36 Potassium 3.0 mmol/L (3.5-5.1) L* 02/05/21 04:36 Chloride 105 mmol/L (98-107) 02/05/21 04:36 Carbon Dioxide 34.1 mmol/L (21-32) H 02/05/21 04:36 BUN 17 mg/dL (7-18) 02/05/21 04:36 Creatinine 0.83 mg/dL (0.55-1.02) 02/05/21 04:36 Est GFR (MDRD) Af Amer > 60 (>60) 02/05/21 04:36 Est GFR (MDRD) Non-Af > 60 (>60) 02/05/21 04:36 Glucose 153 mg/dL (65-99) H 02/05/21 04:36 POC Glucose (mg/dL) 166 mg/dL (65-99) H 02/05/21 12:35 Hemoglobin A1c 11.9 % 02/01/21 07:34 Calcium 8.0 mg/dL (8.5-10.1) L 02/05/21 04:36 Corrected Calcium 9.4 mg/dL (8.5-10.1) 02/05/21 04:36 Magnesium 2.6 mg/dL (1.7-2.9) 02/01/21 19:43 Total Bilirubin 0.50 mg/dL (0.2-1.0) 02/05/21 04:36 AST 30 Units/L (15-37) 02/05/21 04:36 ALT 31 Units/L (12-78) 02/05/21 04:36 Alkaline Phosphatase 47 Units/L (46-116) 02/05/21 04:36 Creatine Kinase 23 Units/L (26-192) L 01/31/21 23:30 CK-MB (CK-2) < 1.0 ng/mL (0-4.0) 01/31/21 23:30 CK/CKMB % Calc 4.4 % (<4) 01/31/21 23:30 Troponin I < 0.02 ng/mL (0-1.5) 01/31/21 23:30 C-Reactive Protein 5.40 mg/L (0-3.0) H 02/05/21 04:36 B-Natriuretic Peptide 106 pg/mL (0-79) H 02/05/21 04:36 Total Protein 5.6 g/dL (6.4-8.2) L 02/05/21 04:36 Albumin 2.2 g/dL (3.4-5.0) L 02/05/21 04:36 Globulin 3.4 g/dL (2.5-4.5) 02/05/21 04:36 Albumin/Globulin Ratio 0.6 Ratio (1.1-2.1) L 02/05/21 04:36 - Plan (1) Pneumonia due to COVID-19 virus Status: Acute Plan: COVID ISOLATION UNIT. IV ATBX, RESP THERAPY. SUPPLEMENTAL O2,. LOVENOX THERAPY, CARDIAC MONITORING. STRICT I&OS,. BP CONTROL, BS CONTROL (2) Hypoxia Status: Acute (3) Diabetes mellitus Status: Chronic Qualifiers: Diabetes mellitus type: type 2 Diabetes mellitus exterminator helper termite insulin use: unspecified exterminator helper termite insulin use status Diabetes mellitus complication status: with hyperglycemia Qualified Code(s): E11.65 - Type 2 diabetes mellitus with hyperglycemia (4) CAD (coronary artery disease) Status: Chronic Qualifiers: Coronary Disease-Associated Artery/Lesion type: [place] artery [place] vs. transplanted heart: [place] heart Associated angina: unspecified whether angina present Qualified Code(s): I25.10 - Atherosclerotic heart disease of [place] coronary artery without angina pectoris (5) Hypertension Status: Chronic Qualifiers: Hypertension type: primary hypertension Qualified Code(s): I10 - Essential (primary) hypertension
[2021-02-05] MEDS: HumuLIN R SC PRN (17:10)
[2021-02-05] MEDS: SNACK - Diabetic Appropriate PO SCH (20:00)
[2021-02-06] MEDS: ASCORBIC ACID INJ MULTI-DOSE VIAL 1,500 MG in NS 100 ML IV 100 ML IV SCH ×4 (02:46→20:57)
[2021-02-06 05:48] LABS: BASOPHILS % (AUTO) 0.1 % (0.2-1.0); HEMATOCRIT 37.1 % (36.0-47.0); HEMOGLOBIN 12.5 g/dL (12.0-16.0); LYMPHOCYTES # (AUTO) 0.4 X10^3/uL (1.3-2.9); LYMPHOCYTES % (AUTO) 6.4 % (21.0-51.0); MEAN CORPUSCULAR HEMOGLOBIN 29.7 pg (27.0-34.0); MEAN CORPUSCULAR HGB CONC 33.7 g/dL (33.0-35.0); MEAN CORPUSCULAR VOLUME 88.3 fL (80.0-100.0); MONOCYTES # (AUTO) 0.3 x10^3/uL (0.3-0.8); MONOCYTES % (AUTO) 4.3 % (0.0-13.0); NEUTROPHILS # (AUTO) 5.4 x10^3/uL (2.2-4.8); NEUTROPHILS % (AUTO) 89.2 % (42.0-75.0); PLATELET COUNT 435 X10^3/uL (150.0-450.0); RED CELL DISTRIBUTION WIDTH 13.5 % (11.6-16.5)
[2021-02-06] MEDS: ZOSYN VIAL 3.375 GRAMS 3.375 G in NS 100 ML IV + SPIKE MINIBAG* 100 ML IV SCH ×3 (05:49→22:32)
[2021-02-06] MEDS: SOLU-Medrol 125 MG VIAL IVP SCH ×3 (05:50→20:59)
[2021-02-06 06:02] LABS: ALANINE AMINOTRANSFERASE 37 Units/L (12-78); ALBUMIN 2.2 g/dL (3.4-5.0); ALKALINE PHOSPHATASE 47 Units/L (46-116); ASPARTATE AMINO TRANSFERASE 33 Units/L (15-37); BLOOD UREA NITROGEN 15 mg/dL (7-18); CARBON DIOXIDE 34.2 mmol/L (21-32); CHLORIDE 104 mmol/L (98-107); COR CA(FOR HYPOALB) 9.4 mg/dL (8.5-10.1); COR NA(FOR HYPERGLY) 144 mmol/L (136-145); CREATININE 0.75 mg/dL (0.55-1.02); SODIUM 144 mmol/L (136-145); TOTAL PROTEIN 5.7 g/dL (6.4-8.2); eGFR NON BLACK RACES > 60 (>60)
[2021-02-06 06:47] LABS: ABG BASE EXCESS 12.1 mmol/L (-2.0-2.0)
[2021-02-06 06:48] LABS: ABG HCO3 36.7 mmol/L (22-26)
[2021-02-06] MEDS: K-DUR TAB 20 MEQ PO PRN (06:48)
[2021-02-06 06:49] LABS: ABG ALLEN TEST POSS
--- NOTE | 2021-02-06 06:57 | RAD ---
HISTORYCOVID-19 pneumoniaSTUDYPortable AP [id number]/28/2021FINDINGSStable normal heart size and contour. There is no definite change in appearance of the right-sided pneumonia. There is slight interval progression of airspace involvement in the retrocardiac left lower lobe. The left upper lobe remains clear.IMPRESSIONPersistent bilateral pneumonia, slightly increased in the left lower lobe.Electronically signed by: CHELE RUVALCABA (Feb 06, 2021 06:56:19)
[2021-02-06] MEDS: BROVANA IN SCH ×2 (08:36→21:03)
[2021-02-06] MEDS: PULMICORT NEB TX 0.5 MG NEB SCH ×2 (08:36→21:03)
[2021-02-06] MEDS: NORVASC TAB 5 MG PO SCH (08:45)
[2021-02-06] MEDS ORDERED: GLUCOPHAGE ONE ×2 (08:55→20:12)
[2021-02-06] MEDS: PROzac PO SCH (09:08)
[2021-02-06] MEDS: ZINC SULFATE PO SCH ×2 (09:08→20:58)
[2021-02-06] MEDS: ZESTRIL TAB 40 MG PO SCH (09:08)
[2021-02-06] MEDS: ZITHROMAX INJ 500 MG VIAL 500 MG in NS 250 ML IV 250 ML IV SCH (09:08)
[2021-02-06] MEDS: VITAMIN A PO SCH (09:09)
[2021-02-06] MEDS: VITAMIN D3 125 mcg (5,000 UNITS) PO SCH (09:09)
[2021-02-06] MEDS: LIPITOR TAB 10 MG PO SCH (09:10)
[2021-02-06] MEDS: TRICOR TAB 160 MG PO SCH (09:10)
[2021-02-06] MEDS: PLAVIX PO SCH (09:12)
[2021-02-06] MEDS: LEVEMIR SC SCH (09:12)
[2021-02-06] MEDS: PROTONIX INJ 40 MG VIAL IVP SCH (09:12)
[2021-02-06] MEDS: GLUCOPHAGE PO SCH ×2 (09:12→20:58)
[2021-02-06] MEDS: ROBITUSSIN DM PO SCH ×4 (09:12→20:58)
[2021-02-06] MEDS: LOVENOX INJ 30 MG SYR SC SCH ×2 (13:28→20:57)
[2021-02-06] MEDS: CATAPRES-TTS-2 TD SCH (13:32)
[2021-02-06] MEDS: NS 1/2 1000 ML IV 1,000 ML IV SCH ×2 (13:35)
[2021-02-06] MEDS ORDERED: NS 1/2 1000 ML IV 1,000 ML IV ONE (17:16)
[2021-02-06] MEDS: KLOR-CON PO PRN (17:31)
[2021-02-06] MEDS: SNACK - Diabetic Appropriate PO SCH (20:00)
[2021-02-06] MEDS: HumuLIN R SC PRN (22:33)
--- NOTE | 2021-02-06 23:17 | PCM.PROG ---
Progress Note - Progress Note for Day of Date of Exam: 02/06/21 - Subjective Subjective: The patient is a 60-year-old white female, patient of , who is being treated for COVID-19 pneumonia with hypoxia. She has a history of diabetes mellitus, coronary artery disease, and hypertension. She has been on IV antibiotics, respiratory therapy, supplemental oxygen, corticosteroids, and Remdesivir. Today, she is alert and oriented, lying in bed on morning rounds. The patient states that she continues with weakness and shortness of breath, but does admit to slight improvement today. She is currently on heated high flow oxygen with an oxygen sats around 87-94%. On examination, The patient is calm and cooperative this morning.. She continues with diffuse expiratory wheezes. Heart rate is a controlled rate and rhythm at this time. Abdomen is soft and non-tender. Bowel sounds are present times all four quadrants. She has no upper or lower extremity edema noted. Her vitals this morning were: 97.1-66-18-94%-163/82. Labs were obtained. Abnormal lab values include the f ollowing: POTASSIUM 2.7, CARBON DIOXIDE 34.2, GLUCOSE 118, CALCIUM 8.0, CRP 3.20, TOTAL PROTEIN 5.7, ALBUMIN 2.2. ABG REVEALED: PH 7.510, PC02 46, P02 54, HC03 36.7, 02 SAT 91, BASE EXCESS 12.1, A-A GRADIENT 188, FI02 42. CHEST XRAY REVEALED: Persistent bilateral pneumonia, slightly increased in the left lower lobe. Today, we will continue with IV antibiotics, respiratory therapy, supplemental oxygen, and pulmonary toileting along with corticosteroids. Aggressive PT/RT. We will follow up with AM labs, chest xray, and ABG. TIME SPENT ON CLINICAL ASSESSMENT, REVIEWING LABS AND IMAGING, DECISION MAKING, AND DOCUMENTATION GREATER THAN 45 MINUTES. - Past Medical Family Social History Past Med/Fam/Surg Hx: No changes since H&P Allergies: Allergies morphine Allergy (Verified 01/29/21 19:07) - Review of Systems ROS: No change since H&P - Vital Signs and I&O's Vital Signs: Temperature 98.7 F Pulse Rate [Left Brachial] 80 Pulse Rate 70 Respiratory Rate 20 Blood Pressure [Left Arm] 180/86 Blood Pressure 208/88 O2 Sat by Pulse Oximetry 90 Intake and Output: Intake & Output 08/27/21 08/28/21 08/29/21 08/30/21 11:59 11:59 11:59 11:59 Intake Total 2137 / 2162 2380 / 238 100 / 100 Balance 2137 / 2162 2380 / 2380 100 / 100 - Physical Exam Oriented: Normal Eyes: Normal Ear: Normal Nose: Normal Throat: Normal Respiratory: Generalized, Diminished, Wheezes Cardiovascular: Normal : Normal Auscultation: Bowel Sounds: Normal Tenderness: Normal Skin: Decreased Turgur Musculoskeletal: Back:Lumbar Psychiatric: Anxiety Affect: Anxious Speech Pattern: Clear, Appropriate - Laboratory and Diagnostics Result Diagrams: 02/06/21 04:23 02/06/21 18:37 Labs: Laboratory WBC 6.0 X10^3/uL (3.6-10.0) 02/06/21 04:23 RBC 4.20 X10^6/uL (3.5-5.4) 02/06/21 04:23 Hgb 12.5 g/dL (12.0-16.0) 02/06/21 04:23 Hct 37.1 % (36.0-47.0) 02/06/21 04:23 MCV 88.3 fL (80.0-100.0) 02/06/21 04:23 MCH 29.7 pg (27.0-34.0) 02/06/21 04:23 MCHC 33.7 g/dL (33.0-35.0) 02/06/21 04:23 RDW 13.5 % (11.6-16.5) 02/06/21 04:23 Plt Count 435 X10^3/uL (150.0-450.0) 02/06/21 04:23 MPV 7.0 fL (7.4-11.0) L 02/06/21 04:23 Neut % (Auto) 89.2 % (42.0-75.0) H 02/06/21 04:23 Lymph % (Auto) 6.4 % (21.0-51.0) L 02/06/21 04:23 [place] % (Auto) 4.3 % (0.0-13.0) 02/06/21 04:23 Eos % (Auto) 0.0 % (0.9-2.9) L 02/06/21 04:23 Baso % (Auto) 0.1 % (0.2-1.0) L 02/06/21 04:23 Neut # (Auto) 5.4 x10^3/uL (2.2-4.8) H 02/06/21 04:23 Lymph # (Auto) 0.4 X10^3/uL (1.3-2.9) L 02/06/21 04:23 [place] # (Auto) 0.3 x10^3/uL (0.3-0.8) 02/06/21 04:23 Eos # (Auto) 0.0 x10^3/uL (0.0-0.2) 02/06/21 04:23 Baso # (Auto) 0.0 X10^3/uL (0.0-0.1) 02/06/21 04:23 Absolute Nucleated RBC 0.0 /100WBC 02/06/21 04:23 D-Dimer 0.53 ug/ml (0.0-0.57) 02/06/21 04:23 Sample Site R rad 02/06/21 06:40 ABG pH 7.510 (7.35-7.45) H 02/06/21 06:40 ABG pCO2 46.0 mmHg (35.0-45.0) H 02/06/21 06:40 ABG pO2 54.0 mmHg (80.0-100.0) L 02/06/21 06:40 ABG HCO3 36.7 mmol/L (22-26) H* 02/06/21 06:40 ABG O2 Saturation 91.0 % (90-100) 02/06/21 06:40 ABG Base Excess 12.1 mmol/L (-2.0-2.0) H 02/06/21 06:40 Juan Carlos Test Poss 02/06/21 06:40 A-a Gradient 188.0 mmHg 02/06/21 06:40 FiO2 42.0 02/06/21 06:40 Blood Gas Comments Narciso well kb 02/06/21 06:40 Sodium 144 mmol/L (136-145) 02/06/21 04:23 Corrected Sodium 144 mmol/L (136-145) 02/06/21 04:23 Potassium 3.2 mmol/L (3.5-5.1) L 02/06/21 18:37 Chloride 104 mmol/L (98-107) 02/06/21 04:23 Carbon Dioxide 34.2 mmol/L (21-32) H 02/06/21 04:23 BUN 15 mg/dL (7-18) 02/06/21 04:23 Creatinine 0.75 mg/dL (0.55-1.02) 02/06/21 04:23 Est GFR (MDRD) Af Amer > 60 (>60) 02/06/21 04:23 Est GFR (MDRD) Non-Af > 60 (>60) 02/06/21 04:23 Glucose 118 mg/dL (65-99) H 02/06/21 04:23 POC Glucose (mg/dL) 161 mg/dL (65-99) H 02/06/21 20:55 Hemoglobin A1c 11.9 % 02/01/21 07:34 Calcium 8.0 mg/dL (8.5-10.1) L 02/06/21 04:23 Corrected Calcium 9.4 mg/dL (8.5-10.1) 02/06/21 04:23 Magnesium 2.6 mg/dL (1.7-2.9) 02/01/21 19:43 Total Bilirubin 0.50 mg/dL (0.2-1.0) 02/06/21 04:23 AST 33 Units/L (15-37) 02/06/21 04:23 ALT 37 Units/L (12-78) 02/06/21 04:23 Alkaline Phosphatase 47 Units/L (46-116) 02/06/21 04:23 Creatine Kinase 23 Units/L (26-192) L 01/31/21 23:30 CK-MB (CK-2) < 1.0 ng/mL (0-4.0) 01/31/21 23:30 CK/CKMB % Calc 4.4 % (<4) 01/31/21 23:30 Troponin I < 0.02 ng/mL (0-1.5) 01/31/21 23:30 C-Reactive Protein 3.20 mg/L (0-3.0) H 02/06/21 04:23 B-Natriuretic Peptide 48.0 pg/mL (0-79) 02/06/21 04:23 Total Protein 5.7 g/dL (6.4-8.2) L 02/06/21 04:23 Albumin 2.2 g/dL (3.4-5.0) L 02/06/21 04:23 Globulin 3.5 g/dL (2.5-4.5) 02/06/21 04:23 Albumin/Globulin Ratio 0.6 Ratio (1.1-2.1) L 02/06/21 04:23 - Plan (1) Pneumonia due to COVID-19 virus Status: Acute Plan: COVID ISOLATION UNIT. IV ATBX, RESP THERAPY. SUPPLEMENTAL O2,. LOVENOX THERAPY, CARDIAC MONITORING. STRICT I&OS,. BP CONTROL, BS CONTROL (2) Hypoxia Status: Acute (3) Diabetes mellitus Status: Chronic Qualifiers: Diabetes mellitus type: type 2 Diabetes mellitus manager terminal insulin use: unspecified senior living insulin use status Diabetes mellitus complication status: with hyperglycemia Qualified Code(s): E11.65 - Type 2 diabetes mellitus with hyperglycemia (4) CAD (coronary artery disease) Status: Chronic Qualifiers: Coronary Disease-Associated Artery/Lesion type: [place] artery [place] vs. transplanted heart: [place] heart Associated angina: unspecified whether angina present Qualified Code(s): I25.10 - Atherosclerotic heart disease of [place] coronary artery without angina pectoris (5) Hypertension Status: Chronic Qualifiers: Hypertension type: primary hypertension Qualified Code(s): I10 - Essential (primary) hypertension
[2021-02-07] MEDS: ASCORBIC ACID INJ MULTI-DOSE VIAL 1,500 MG in NS 100 ML IV 100 ML IV SCH ×4 (02:30→21:21)
[2021-02-07] MEDS: KLOR-CON PO PRN (02:53)
[2021-02-07] MEDS: ZOSYN VIAL 3.375 GRAMS 3.375 G in NS 100 ML IV + SPIKE MINIBAG* 100 ML IV SCH ×3 (05:14→22:54)
[2021-02-07] MEDS: SOLU-Medrol 125 MG VIAL IVP SCH ×3 (05:14→21:22)
[2021-02-07 05:47] LABS: BASOPHILS % (AUTO) 0.1 % (0.2-1.0); HEMOGLOBIN 11.3 g/dL (12.0-16.0); LYMPHOCYTES # (AUTO) 0.4 X10^3/uL (1.3-2.9); LYMPHOCYTES % (AUTO) 5.5 % (21.0-51.0); MEAN CORPUSCULAR HEMOGLOBIN 30.1 pg (27.0-34.0); MEAN CORPUSCULAR HGB CONC 34.1 g/dL (33.0-35.0); MEAN CORPUSCULAR VOLUME 88.3 fL (80.0-100.0); MEAN PLATELET VOLUME 7.4 fL (7.4-11.0); MONOCYTES # (AUTO) 0.3 x10^3/uL (0.3-0.8); MONOCYTES % (AUTO) 4.3 % (0.0-13.0); NEUTROPHILS # (AUTO) 6.1 x10^3/uL (2.2-4.8); NEUTROPHILS % (AUTO) 90.1 % (42.0-75.0); PLATELET COUNT 372 X10^3/uL (150.0-450.0); RED BLOOD COUNT 3.74 X10^6/uL (3.5-5.4); RED CELL DISTRIBUTION WIDTH 13.2 % (11.6-16.5); WHITE BLOOD COUNT 6.7 X10^3/uL (3.6-10.0)
[2021-02-07 06:06] LABS: ALANINE AMINOTRANSFERASE 40 Units/L (12-78); ALKALINE PHOSPHATASE 41 Units/L (46-116); ASPARTATE AMINO TRANSFERASE 31 Units/L (15-37); BLOOD UREA NITROGEN 16 mg/dL (7-18); CALCIUM 7.9 mg/dL (8.5-10.1); CARBON DIOXIDE 33.7 mmol/L (21-32); CHLORIDE 106 mmol/L (98-107); COR CA(FOR HYPOALB) 9.5 mg/dL (8.5-10.1); COR NA(FOR HYPERGLY) 146 mmol/L (136-145); CREATININE 0.98 mg/dL (0.55-1.02); SODIUM 144 mmol/L (136-145); eGFR NON BLACK RACES > 60 (>60)
[2021-02-07 07:06] LABS: BAND NEUTROPHILS % 1 % (0-10); PLATELET MORPHOLOGY COMMENT NORMAL (NORMAL)
[2021-02-07] MEDS ORDERED: GLUCOPHAGE ONE ×2 (08:02→20:31)
--- NOTE | 2021-02-07 08:12 | RAD ---
HISTORYSOBSTUDYCHEST, 1 [id number]/29/2021FINDINGSPatchy and peripheral opacity in the lungs is compatible with bronchopneumonia. Not changed significantly from the prior study.No pleural effusion or pneumothorax.Heart size is normal.Bones are unremarkable.IMPRESSION1. Unchanged bronchopneumoniaElectronically signed by: Clarence Sears (Feb 07, 2021 08:10:31)
[2021-02-07] MEDS: PULMICORT NEB TX 0.5 MG NEB SCH ×2 (08:45→21:04)
[2021-02-07] MEDS: BROVANA IN SCH ×2 (08:45→21:04)
[2021-02-07] MEDS: PROTONIX INJ 40 MG VIAL IVP SCH (09:18)
[2021-02-07] MEDS: LIPITOR TAB 10 MG PO SCH (09:19)
[2021-02-07] MEDS: LEVEMIR SC SCH (09:19)
[2021-02-07] MEDS: ROBITUSSIN DM PO SCH ×4 (09:20→21:22)
[2021-02-07] MEDS: ZESTRIL TAB 40 MG PO SCH (09:20)
[2021-02-07] MEDS: PROzac PO SCH (09:20)
[2021-02-07] MEDS: ZINC SULFATE PO SCH ×2 (09:20→21:22)
[2021-02-07] MEDS: NORVASC TAB 5 MG PO SCH (09:20)
[2021-02-07] MEDS: PLAVIX PO SCH (09:20)
[2021-02-07] MEDS: GLUCOPHAGE PO SCH ×2 (09:20→21:23)
[2021-02-07] MEDS: LOVENOX INJ 30 MG SYR SC SCH ×2 (09:21→21:22)
[2021-02-07] MEDS: TRICOR TAB 160 MG PO SCH (09:21)
[2021-02-07] MEDS: VITAMIN D3 125 mcg (5,000 UNITS) PO SCH (09:21)
[2021-02-07] MEDS: VITAMIN A PO SCH (09:21)
[2021-02-07] MEDS: ZITHROMAX INJ 500 MG VIAL 500 MG in NS 250 ML IV 250 ML IV SCH (10:30)
[2021-02-07] MEDS: NS 1/2 1000 ML IV 1,000 ML IV SCH (14:26)
[2021-02-07] MEDS: SNACK - Diabetic Appropriate PO SCH (20:20)
[2021-02-08] MEDS: ASCORBIC ACID INJ MULTI-DOSE VIAL 1,500 MG in NS 100 ML IV 100 ML IV SCH ×3 (02:30→18:45)
[2021-02-08 05:43] LABS: ABG BASE EXCESS 13.1 mmol/L (-2.0-2.0)
[2021-02-08 05:44] LABS: ABG ALLEN TEST POS; ABG HCO3 37.6 mmol/L (22-26)
[2021-02-08] MEDS: SOLU-Medrol 125 MG VIAL IVP SCH ×3 (05:53→21:44)
[2021-02-08] MEDS: ZOSYN VIAL 3.375 GRAMS 3.375 G in NS 100 ML IV + SPIKE MINIBAG* 100 ML IV SCH ×3 (05:54→21:42)
[2021-02-08 05:56] LABS: BASOPHILS % (AUTO) 0.2 % (0.2-1.0); HEMATOCRIT 32.3 % (36.0-47.0); LYMPHOCYTES # (AUTO) 0.4 X10^3/uL (1.3-2.9); LYMPHOCYTES % (AUTO) 4.4 % (21.0-51.0); MEAN CORPUSCULAR HEMOGLOBIN 30.3 pg (27.0-34.0); MEAN CORPUSCULAR HGB CONC 34.2 g/dL (33.0-35.0); MEAN CORPUSCULAR VOLUME 88.7 fL (80.0-100.0); MEAN PLATELET VOLUME 7.5 fL (7.4-11.0); MONOCYTES # (AUTO) 0.2 x10^3/uL (0.3-0.8); MONOCYTES % (AUTO) 2.1 % (0.0-13.0); NEUTROPHILS # (AUTO) 8.6 x10^3/uL (2.2-4.8); NEUTROPHILS % (AUTO) 93.3 % (42.0-75.0); PLATELET COUNT 347 X10^3/uL (150.0-450.0); RED BLOOD COUNT 3.64 X10^6/uL (3.5-5.4); RED CELL DISTRIBUTION WIDTH 13.5 % (11.6-16.5); WHITE BLOOD COUNT 9.2 X10^3/uL (3.6-10.0)
[2021-02-08 06:09] LABS: ALANINE AMINOTRANSFERASE 48 Units/L (12-78); ALBUMIN 1.9 g/dL (3.4-5.0); ALKALINE PHOSPHATASE 42 Units/L (46-116); ASPARTATE AMINO TRANSFERASE 32 Units/L (15-37); BLOOD UREA NITROGEN 13 mg/dL (7-18); CALCIUM 7.7 mg/dL (8.5-10.1); CHLORIDE 106 mmol/L (98-107); COR CA(FOR HYPOALB) 9.4 mg/dL (8.5-10.1); COR NA(FOR HYPERGLY) 146 mmol/L (136-145); CREATININE 0.81 mg/dL (0.55-1.02); MAGNESIUM 2.1 mg/dL (1.7-2.9); SODIUM 145 mmol/L (136-145); TOTAL PROTEIN 5.1 g/dL (6.4-8.2); eGFR NON BLACK RACES > 60 (>60)
[2021-02-08] MEDS: KLOR-CON PO PRN ×2 (06:29→16:34)
[2021-02-08 07:30] LABS: PLATELET MORPHOLOGY COMMENT NORMAL (NORMAL)
--- NOTE | 2021-02-08 08:10 | RAD ---
HISTORYSOBSTUDYCHEST, 1 [id number]/30/2021FINDINGSThe cardiomediastinal silhouette is stable. Coronary stent. Similar bilateral airspace opacities. The bony thorax appears intact.IMPRESSIONNo significant change.Electronically signed by: KISHA ALONZO (Feb 08, 2021 08:08:14)
[2021-02-08] MEDS ORDERED: GLUCOPHAGE ONE ×2 (08:28→19:45)
[2021-02-08] MEDS ORDERED: LASIX IVP SCH (09:00)
[2021-02-08] MEDS: PULMICORT NEB TX 0.5 MG NEB SCH ×2 (09:12→21:56)
[2021-02-08] MEDS: BROVANA IN SCH ×2 (09:12→21:56)
[2021-02-08] MEDS: PROTONIX INJ 40 MG VIAL IVP SCH ×2 (09:24→21:43)
[2021-02-08] MEDS: ZINC SULFATE PO SCH ×2 (09:24→21:44)
[2021-02-08] MEDS: ROBITUSSIN DM PO SCH ×4 (09:24→21:44)
[2021-02-08] MEDS: PROzac PO SCH (09:26)
[2021-02-08] MEDS: PLAVIX PO SCH (09:26)
[2021-02-08] MEDS: ZESTRIL TAB 40 MG PO SCH (09:26)
[2021-02-08] MEDS: GLUCOPHAGE PO SCH ×2 (09:26→21:44)
[2021-02-08] MEDS: LIPITOR TAB 10 MG PO SCH (09:27)
[2021-02-08] MEDS: VITAMIN A PO SCH (09:27)
[2021-02-08] MEDS: NORVASC TAB 5 MG PO SCH (09:27)
[2021-02-08] MEDS: VITAMIN D3 125 mcg (5,000 UNITS) PO SCH (09:27)
[2021-02-08] MEDS: TRICOR TAB 160 MG PO SCH (09:28)
[2021-02-08] MEDS: LEVEMIR SC SCH (09:28)
[2021-02-08] MEDS: ZITHROMAX INJ 500 MG VIAL 500 MG in NS 250 ML IV 250 ML IV SCH (10:01)
[2021-02-08] MEDS: LOVENOX INJ 30 MG SYR SC SCH ×2 (10:55→21:43)
[2021-02-08] MEDS ORDERED: PROTONIX INJ 40 MG VIAL ONE (19:46)
[2021-02-08] MEDS: SNACK - Diabetic Appropriate PO SCH (20:00)
[2021-02-08] MEDS: HumuLIN R SC PRN (21:42)
[2021-02-08] MEDS: NS 1/2 1000 ML IV 1,000 ML IV SCH (23:21)
[2021-02-09] MEDS: ASCORBIC ACID INJ MULTI-DOSE VIAL 1,500 MG in NS 100 ML IV 100 ML IV SCH ×3 (01:41→18:30)
[2021-02-09 05:54] LABS: BASOPHILS % (AUTO) 0.2 % (0.2-1.0); EOSINOPHILS % (AUTO) 0.1 % (0.9-2.9); HEMOGLOBIN 10.9 g/dL (12.0-16.0); LYMPHOCYTES # (AUTO) 0.4 X10^3/uL (1.3-2.9); LYMPHOCYTES % (AUTO) 4.5 % (21.0-51.0); MEAN CORPUSCULAR HEMOGLOBIN 30.6 pg (27.0-34.0); MEAN CORPUSCULAR HGB CONC 34.1 g/dL (33.0-35.0); MEAN CORPUSCULAR VOLUME 89.5 fL (80.0-100.0); MEAN PLATELET VOLUME 7.5 fL (7.4-11.0); MONOCYTES # (AUTO) 0.3 x10^3/uL (0.3-0.8); MONOCYTES % (AUTO) 3.7 % (0.0-13.0); NEUTROPHILS # (AUTO) 7.8 x10^3/uL (2.2-4.8); NEUTROPHILS % (AUTO) 91.5 % (42.0-75.0); PLATELET COUNT 361 X10^3/uL (150.0-450.0); RED BLOOD COUNT 3.57 X10^6/uL (3.5-5.4); RED CELL DISTRIBUTION WIDTH 13.4 % (11.6-16.5); WHITE BLOOD COUNT 8.6 X10^3/uL (3.6-10.0)
[2021-02-09 06:00] LABS: ALANINE AMINOTRANSFERASE 42 Units/L (12-78); ALKALINE PHOSPHATASE 47 Units/L (46-116); ASPARTATE AMINO TRANSFERASE 23 Units/L (15-37); BLOOD UREA NITROGEN 11 mg/dL (7-18); CARBON DIOXIDE 35.5 mmol/L (21-32); CHLORIDE 105 mmol/L (98-107); COR CA(FOR HYPOALB) 9.6 mg/dL (8.5-10.1); COR NA(FOR HYPERGLY) 147 mmol/L (136-145); CREATININE 0.93 mg/dL (0.55-1.02); SODIUM 143 mmol/L (136-145); TOTAL PROTEIN 5.2 g/dL (6.4-8.2); eGFR NON BLACK RACES > 60 (>60)
[2021-02-09] MEDS: ZOSYN VIAL 3.375 GRAMS 3.375 G in NS 100 ML IV + SPIKE MINIBAG* 100 ML IV SCH ×4 (06:03→22:01)
[2021-02-09] MEDS: HumuLIN R SC PRN ×2 (06:03→12:00)
[2021-02-09] MEDS: SOLU-Medrol 125 MG VIAL IVP SCH ×3 (06:04→22:01)
[2021-02-09] MEDS: KLOR-CON PO PRN (06:46)
[2021-02-09 06:49] LABS: PLATELET MORPHOLOGY COMMENT NORMAL (NORMAL)
--- NOTE | 2021-02-09 08:02 | RAD ---
HISTORYSOBSTUDYPortable AP chestCOMPARISONAugust 2020FINDINGSContinued normal heart size and contour. Similar extent and distribution of bilateral pulmonary infiltrates, right greater than left with peripheral distribution of right-sided disease. No additional consolidation, pneumothorax or pleural fluid identified.IMPRESSIONStable appearance of pneumonia. No interval change.Electronically signed by: CHELE RUVALCABA (Feb 09, 2021 08:00:19)
[2021-02-09] MEDS ORDERED: GLUCOPHAGE ONE ×2 (08:16→20:04)
[2021-02-09] MEDS: PULMICORT NEB TX 0.5 MG NEB SCH ×2 (08:53→21:40)
[2021-02-09] MEDS: BROVANA IN SCH ×2 (08:53→21:40)
[2021-02-09] MEDS: ZITHROMAX INJ 500 MG VIAL 500 MG in NS 250 ML IV 250 ML IV SCH (09:23)
[2021-02-09] MEDS: PLAVIX PO SCH (09:25)
[2021-02-09] MEDS: LOVENOX INJ 30 MG SYR SC SCH ×2 (09:25→21:02)
[2021-02-09] MEDS: GLUCOPHAGE PO SCH ×2 (09:26→20:41)
[2021-02-09] MEDS: NORVASC TAB 5 MG PO SCH (09:26)
[2021-02-09] MEDS: ZINC SULFATE PO SCH ×2 (09:26→20:41)
[2021-02-09] MEDS: PROzac PO SCH (09:26)
[2021-02-09] MEDS: LIPITOR TAB 10 MG PO SCH (09:26)
[2021-02-09] MEDS: ZESTRIL TAB 40 MG PO SCH (09:26)
[2021-02-09] MEDS: ROBITUSSIN DM PO SCH ×4 (09:27→20:41)
[2021-02-09] MEDS: LEVEMIR SC SCH (09:27)
[2021-02-09] MEDS: TRICOR TAB 160 MG PO SCH (09:28)
[2021-02-09] MEDS: PROTONIX INJ 40 MG VIAL IVP SCH ×2 (09:28→20:41)
[2021-02-09] MEDS: VITAMIN D3 125 mcg (5,000 UNITS) PO SCH (09:29)
[2021-02-09] MEDS: VITAMIN A PO SCH (09:29)
[2021-02-09 11:01] LABS: ABG BASE EXCESS 9.5 mmol/L (-2.0-2.0)
[2021-02-09 11:02] LABS: ABG ALLEN TEST POS; ABG HCO3 33.5 mmol/L (22-26)
[2021-02-09] MEDS: NS 1/2 1000 ML IV 1,000 ML IV SCH (14:46)
[2021-02-09] MEDS: SNACK - Diabetic Appropriate PO SCH (20:40)
[2021-02-10] MEDS: ASCORBIC ACID INJ MULTI-DOSE VIAL 1,500 MG in NS 100 ML IV 100 ML IV SCH ×3 (02:30→17:09)
[2021-02-10 04:47] LABS: ABG BASE EXCESS 10.8 mmol/L (-2.0-2.0)
[2021-02-10 04:48] LABS: ABG ALLEN TEST POS; ABG HCO3 35.1 mmol/L (22-26)
[2021-02-10] MEDS: ZOSYN VIAL 3.375 GRAMS 3.375 G in NS 100 ML IV + SPIKE MINIBAG* 100 ML IV SCH (05:04)
[2021-02-10] MEDS: SOLU-Medrol 125 MG VIAL IVP SCH ×3 (05:06→22:00)
[2021-02-10 05:32] LABS: BASOPHILS % (AUTO) 0.1 % (0.2-1.0); HEMATOCRIT 31.5 % (36.0-47.0); HEMOGLOBIN 10.7 g/dL (12.0-16.0); LYMPHOCYTES # (AUTO) 0.4 X10^3/uL (1.3-2.9); LYMPHOCYTES % (AUTO) 4.9 % (21.0-51.0); MEAN CORPUSCULAR HEMOGLOBIN 30.2 pg (27.0-34.0); MEAN CORPUSCULAR HGB CONC 33.8 g/dL (33.0-35.0); MEAN CORPUSCULAR VOLUME 89.3 fL (80.0-100.0); MEAN PLATELET VOLUME 7.8 fL (7.4-11.0); MONOCYTES # (AUTO) 0.3 x10^3/uL (0.3-0.8); MONOCYTES % (AUTO) 3.8 % (0.0-13.0); NEUTROPHILS # (AUTO) 7.7 x10^3/uL (2.2-4.8); NEUTROPHILS % (AUTO) 91.2 % (42.0-75.0); PLATELET COUNT 331 X10^3/uL (150.0-450.0); RED BLOOD COUNT 3.53 X10^6/uL (3.5-5.4); RED CELL DISTRIBUTION WIDTH 13.1 % (11.6-16.5); WHITE BLOOD COUNT 8.4 X10^3/uL (3.6-10.0)
[2021-02-10] MEDS ORDERED: NS 1/2 1000 ML IV 1,000 ML IV ONE ×2 (05:45→19:39)
[2021-02-10 05:54] LABS: ALANINE AMINOTRANSFERASE 40 Units/L (12-78); ALKALINE PHOSPHATASE 50 Units/L (46-116); ASPARTATE AMINO TRANSFERASE 21 Units/L (15-37); BLOOD UREA NITROGEN 12 mg/dL (7-18); CARBON DIOXIDE 34.6 mmol/L (21-32); CHLORIDE 104 mmol/L (98-107); COR CA(FOR HYPOALB) 9.6 mg/dL (8.5-10.1); COR NA(FOR HYPERGLY) 146 mmol/L (136-145); CREATININE 0.92 mg/dL (0.55-1.02); SODIUM 144 mmol/L (136-145); TOTAL PROTEIN 5.2 g/dL (6.4-8.2); eGFR NON BLACK RACES > 60 (>60)
[2021-02-10 06:57] LABS: PLATELET MORPHOLOGY COMMENT NORMAL (NORMAL)
[2021-02-10] MEDS ORDERED: GLUCOPHAGE ONE ×2 (07:56→19:35)
--- NOTE | 2021-02-10 08:16 | RAD ---
HISTORYCOVID PNEUMONIASTUDYCHEST, 1 [id number]/01/2021FINDINGSThe cardiomediastinal silhouette is stable. Similar bilateral airspace opacities. Similar azygos fissure. The bony thorax appears intact.IMPRESSIONNo acute cardiopulmonary disease.Electronically signed by: KISHA ALONZO (Feb 10, 2021 08:13:56)
[2021-02-10] MEDS: GLUCOPHAGE PO SCH ×2 (08:21→20:18)
[2021-02-10] MEDS: LEVEMIR SC SCH (08:21)
[2021-02-10] MEDS: LOVENOX INJ 30 MG SYR SC SCH ×2 (08:22→20:19)
[2021-02-10] MEDS: PROTONIX INJ 40 MG VIAL IVP SCH ×2 (08:22→20:19)
[2021-02-10] MEDS: NORVASC TAB 5 MG PO SCH (08:23)
[2021-02-10] MEDS: LIPITOR TAB 10 MG PO SCH (08:23)
[2021-02-10] MEDS: ROBITUSSIN DM PO SCH ×4 (08:23→20:18)
[2021-02-10] MEDS: PLAVIX PO SCH (08:24)
[2021-02-10] MEDS: PROzac PO SCH (08:24)
[2021-02-10] MEDS: ZINC SULFATE PO SCH ×2 (08:25→20:18)
[2021-02-10] MEDS: TRICOR TAB 160 MG PO SCH (08:25)
[2021-02-10] MEDS: VITAMIN D3 125 mcg (5,000 UNITS) PO SCH (08:25)
[2021-02-10] MEDS: ZESTRIL TAB 40 MG PO SCH (08:25)
[2021-02-10] MEDS: VITAMIN A PO SCH (08:25)
[2021-02-10] MEDS: ZITHROMAX INJ 500 MG VIAL 500 MG in NS 250 ML IV 250 ML IV SCH (08:26)
[2021-02-10] MEDS: K-DUR TAB 20 MEQ PO PRN (09:59)
[2021-02-10] MEDS: PULMICORT NEB TX 0.5 MG NEB SCH ×2 (10:45→20:20)
[2021-02-10] MEDS: BROVANA IN SCH ×2 (10:45→20:20)
[2021-02-10] MEDS: NS 1/2 1000 ML IV 1,000 ML IV SCH (12:11)
[2021-02-10] MEDS: SNACK - Diabetic Appropriate PO SCH (20:20)
[2021-02-11] MEDS: ASCORBIC ACID INJ MULTI-DOSE VIAL 1,500 MG in NS 100 ML IV 100 ML IV SCH ×3 (02:08→18:15)
[2021-02-11] MEDS: APRESOLINE INJ 20 MG VIAL IVP PRN ×3 (04:12→23:58)
[2021-02-11 05:07] LABS: ABG BASE EXCESS 10.1 mmol/L (-2.0-2.0)
[2021-02-11 05:08] LABS: ABG ALLEN TEST POS; ABG HCO3 33.2 mmol/L (22-26)
[2021-02-11] MEDS: SOLU-Medrol 125 MG VIAL IVP SCH ×3 (06:00→21:06)
[2021-02-11] MEDS: HumuLIN R SC PRN ×4 (06:08→21:08)
[2021-02-11 06:47] LABS: BASOPHILS % (AUTO) 0.1 % (0.2-1.0); HEMATOCRIT 33.4 % (36.0-47.0); HEMOGLOBIN 11.4 g/dL (12.0-16.0); LYMPHOCYTES # (AUTO) 0.7 X10^3/uL (1.3-2.9); LYMPHOCYTES % (AUTO) 8.4 % (21.0-51.0); MEAN CORPUSCULAR HEMOGLOBIN 30.3 pg (27.0-34.0); MEAN CORPUSCULAR HGB CONC 34.3 g/dL (33.0-35.0); MEAN CORPUSCULAR VOLUME 88.4 fL (80.0-100.0); MEAN PLATELET VOLUME 7.7 fL (7.4-11.0); MONOCYTES # (AUTO) 0.5 x10^3/uL (0.3-0.8); MONOCYTES % (AUTO) 6.5 % (0.0-13.0); PLATELET COUNT 411 X10^3/uL (150.0-450.0); RED BLOOD COUNT 3.78 X10^6/uL (3.5-5.4); RED CELL DISTRIBUTION WIDTH 13.5 % (11.6-16.5); WHITE BLOOD COUNT 8.2 X10^3/uL (3.6-10.0)
[2021-02-11] MEDS ORDERED: GLUCOPHAGE ONE ×2 (07:21→19:40)
[2021-02-11 07:27] LABS: ALANINE AMINOTRANSFERASE 44 Units/L (12-78); ALBUMIN 2.2 g/dL (3.4-5.0); ALKALINE PHOSPHATASE 52 Units/L (46-116); ASPARTATE AMINO TRANSFERASE 23 Units/L (15-37); BLOOD UREA NITROGEN 12 mg/dL (7-18); CALCIUM 8.5 mg/dL (8.5-10.1); CARBON DIOXIDE 33.3 mmol/L (21-32); CHLORIDE 103 mmol/L (98-107); COR CA(FOR HYPOALB) 9.9 mg/dL (8.5-10.1); COR NA(FOR HYPERGLY) 146 mmol/L (136-145); CREATININE 0.89 mg/dL (0.55-1.02); SODIUM 142 mmol/L (136-145); TOTAL PROTEIN 5.4 g/dL (6.4-8.2); eGFR NON BLACK RACES > 60 (>60)
[2021-02-11] MEDS ORDERED: BROVANA ONE (08:10)
--- NOTE | 2021-02-11 08:13 | RAD ---
HISTORYCOVID PNEUMONIA PMH: CAD DM HTN MT PSH: ANGIO/STENTS; CHOLESTUDYCHEST, 1 [id number]/02/2021FINDINGSThe trachea is midline normal heart size. There is again seen bilateral ground-glass radiopacities of predominance in the peripheral regions. There is also unchanged patchy alveolar radiopacities in the left lower lobe. There is no evidence of pneumothorax, subcutaneous emphysema or pneumomediastinum. Osseus structures are unremarkableIMPRESSIONStable bilateral ground-glass radiopacities of predominance in the periphery and in left lower lobeElectronically signed by: Pauline Lowry (Feb 11, 2021 08:11:25)
[2021-02-11] MEDS: PULMICORT NEB TX 0.5 MG NEB SCH ×2 (08:19→21:40)
[2021-02-11] MEDS: BROVANA IN SCH ×2 (08:19→21:40)
[2021-02-11] MEDS: LOVENOX INJ 30 MG SYR SC SCH ×2 (08:47→21:07)
[2021-02-11] MEDS: PROTONIX INJ 40 MG VIAL IVP SCH ×2 (08:47→21:06)
[2021-02-11] MEDS: ROBITUSSIN DM PO SCH ×4 (08:50→21:07)
[2021-02-11] MEDS: ZINC SULFATE PO SCH ×2 (08:51→21:06)
[2021-02-11] MEDS: PLAVIX PO SCH (08:51)
[2021-02-11] MEDS: LIPITOR TAB 10 MG PO SCH (08:52)
[2021-02-11] MEDS: NORVASC TAB 5 MG PO SCH (08:52)
[2021-02-11] MEDS: ZESTRIL TAB 40 MG PO SCH (08:53)
[2021-02-11] MEDS: VITAMIN D3 125 mcg (5,000 UNITS) PO SCH (08:53)
[2021-02-11] MEDS: PROzac PO SCH (08:53)
[2021-02-11] MEDS: GLUCOPHAGE PO SCH ×2 (08:53→21:05)
[2021-02-11] MEDS: LEVEMIR SC SCH (08:54)
[2021-02-11] MEDS: TRICOR TAB 160 MG PO SCH (08:55)
[2021-02-11] MEDS: VITAMIN A PO SCH (08:55)
[2021-02-11] MEDS: ZITHROMAX INJ 500 MG VIAL 500 MG in NS 250 ML IV 250 ML IV SCH (08:55)
[2021-02-11 09:50] LABS: BAND NEUTROPHILS % 4 % (0-10); PLATELET MORPHOLOGY COMMENT NORMAL (NORMAL)
[2021-02-11] MEDS: NS 1/2 1000 ML IV 1,000 ML IV SCH (12:22)
[2021-02-11] MEDS ORDERED: APRESOLINE TAB 10 MG ONE (19:40)
[2021-02-11] MEDS: SNACK - Diabetic Appropriate PO SCH (21:00)
[2021-02-11] MEDS: APRESOLINE TAB 10 MG PO SCH (21:05)
[2021-02-12] MEDS: ASCORBIC ACID INJ MULTI-DOSE VIAL 1,500 MG in NS 100 ML IV 100 ML IV SCH ×3 (01:42→17:02)
[2021-02-12 05:37] LABS: ABG BASE EXCESS 9.8 mmol/L (-2.0-2.0)
[2021-02-12 05:38] LABS: ABG ALLEN TEST POS; ABG HCO3 33.4 mmol/L (22-26)
[2021-02-12] MEDS: SOLU-Medrol 125 MG VIAL IVP SCH ×3 (05:44→21:08)
[2021-02-12] MEDS: APRESOLINE INJ 20 MG VIAL IVP PRN ×2 (05:44→16:23)
[2021-02-12] MEDS: HumuLIN R SC PRN ×4 (05:45→21:10)
[2021-02-12 06:42] LABS: BASOPHILS % (AUTO) 0.1 % (0.2-1.0); HEMATOCRIT 34.1 % (36.0-47.0); HEMOGLOBIN 11.6 g/dL (12.0-16.0); LYMPHOCYTES # (AUTO) 0.6 X10^3/uL (1.3-2.9); MEAN CORPUSCULAR HEMOGLOBIN 30.4 pg (27.0-34.0); MEAN CORPUSCULAR HGB CONC 33.9 g/dL (33.0-35.0); MEAN CORPUSCULAR VOLUME 89.7 fL (80.0-100.0); MEAN PLATELET VOLUME 7.3 fL (7.4-11.0); MONOCYTES # (AUTO) 0.5 x10^3/uL (0.3-0.8); MONOCYTES % (AUTO) 5.3 % (0.0-13.0); NEUTROPHILS # (AUTO) 8.1 x10^3/uL (2.2-4.8); NEUTROPHILS % (AUTO) 87.6 % (42.0-75.0); PLATELET COUNT 392 X10^3/uL (150.0-450.0); RED CELL DISTRIBUTION WIDTH 13.5 % (11.6-16.5); WHITE BLOOD COUNT 9.3 X10^3/uL (3.6-10.0)
[2021-02-12 06:54] LABS: ALANINE AMINOTRANSFERASE 43 Units/L (12-78); ALBUMIN 2.1 g/dL (3.4-5.0); ALKALINE PHOSPHATASE 44 Units/L (46-116); ASPARTATE AMINO TRANSFERASE 22 Units/L (15-37); BLOOD UREA NITROGEN 12 mg/dL (7-18); CALCIUM 8.5 mg/dL (8.5-10.1); CARBON DIOXIDE 33.6 mmol/L (21-32); CHLORIDE 103 mmol/L (98-107); COR NA(FOR HYPERGLY) 145 mmol/L (136-145); CREATININE 0.88 mg/dL (0.55-1.02); SODIUM 141 mmol/L (136-145); TOTAL PROTEIN 5.2 g/dL (6.4-8.2); eGFR NON BLACK RACES > 60 (>60)
[2021-02-12] MEDS ORDERED: GLUCOPHAGE ONE ×2 (07:01→19:01)
--- NOTE | 2021-02-12 07:01 | RAD ---
HISTORYCOVID-19 pneumoniaSTUDYPortable AP [id number]/03/2021FINDINGSContinued normal heart size. There is no definite change in extent o r distribution of the bilateral peripheral pulmonary infiltrates/pneumonia. However there is suggesti on of a small peripheral right pneumothorax. No pleural fluid is identified.IMPRESSIONStable appearan ce of bilateral pneumonia. Suggestion of small peripheral right pneumothorax. Follow-up recommended t o evaluate this.Electronically signed by: CHELE RUVALCABA (Feb 12, 2021 06:59:33)
[2021-02-12 08:35] LABS: PLATELET MORPHOLOGY COMMENT NORMAL (NORMAL)
[2021-02-12] MEDS: LEVEMIR SC SCH (08:56)
[2021-02-12] MEDS: LOVENOX INJ 30 MG SYR SC SCH ×2 (08:56→21:07)
[2021-02-12] MEDS: PROzac PO SCH (08:58)
[2021-02-12] MEDS: ZINC SULFATE PO SCH ×2 (08:58→21:08)
[2021-02-12] MEDS: PLAVIX PO SCH (08:58)
[2021-02-12] MEDS: GLUCOPHAGE PO SCH ×2 (08:59→21:08)
[2021-02-12] MEDS: ROBITUSSIN DM PO SCH ×4 (08:59→21:06)
[2021-02-12] MEDS: ZITHROMAX INJ 500 MG VIAL 500 MG in NS 250 ML IV 250 ML IV SCH (09:00)
[2021-02-12] MEDS: PROTONIX INJ 40 MG VIAL IVP SCH ×2 (09:00→21:06)
[2021-02-12] MEDS: LIPITOR TAB 10 MG PO SCH (09:00)
[2021-02-12] MEDS: TRICOR TAB 160 MG PO SCH (09:00)
[2021-02-12] MEDS: ZESTRIL TAB 40 MG PO SCH (09:00)
[2021-02-12] MEDS: VITAMIN A PO SCH (09:02)
[2021-02-12] MEDS: APRESOLINE TAB 10 MG PO SCH ×2 (09:02→21:10)
[2021-02-12] MEDS: NORVASC TAB 5 MG PO SCH (09:07)
[2021-02-12] MEDS: BROVANA IN SCH ×2 (10:10→20:10)
[2021-02-12] MEDS: PULMICORT NEB TX 0.5 MG NEB SCH ×2 (10:10→20:10)
[2021-02-12] MEDS: VITAMIN D3 125 mcg (5,000 UNITS) PO SCH (11:08)
[2021-02-12] MEDS: NS 1/2 1000 ML IV 1,000 ML IV SCH (13:29)
--- NOTE | 2021-02-12 15:27 | RAD ---
CHEST, 1 VIEWHISTORY: FOLLOW UP PNEMOTHORAX, COVID+Study: Single view of the chest.Comparison:Stem for 09/2020 at 5 o'clock a.m.Findings:The cardiomediastinal silhouette is normal.Re-demonstration of small right pneumothorax. Patchy airspace opacities persist. Osseous structures demonstrate no acute abnormality.IMPRESSION:1. No significant change from priorElectronically signed by: MADELINE HAIRSTON (Feb 12, 2021 15:25:34)
--- NOTE | 2021-02-12 17:35 | PCM.PROG ---
Progress Note Progress Note for Day of Date of Exam: 02/12/21 Subjective Subjective: Patient seen at bedside, no acute events overnight. Patient states she is feeling better. She is on HHFNC FiO2 75%. She has some cough. Denies fever or chills. She reports good appetite. Labs: WBC 9.3 Hgb 11.6 K: 3.1 Glucose 267 BUN/Cr: 12/0.88 ABG 7.53/40/62/33 CXR: bilateral pneumonia, small right pneumothorax Plan: Wean O2 as tolerated to keep sats > 92%. Continue current treatment with IV Solumedrol and Azithromycin. Will repeat CXR this evening to f/u on pneumothorax. Continue nebs, pulmicort and IS. Continue vitamin support. PT/OT as tolerated. Continue home medications. Monitor AM labs/imaging. Time spent for clinical assessment, reviewing labs/imaging, physical exam, decision making and documentation greater than 45 mins. Past Medical Family Social History Past Med/Fam/Surg Hx: No changes since H&P Allergies: Allergies morphine Allergy (Verified 01/29/21 19:07) Review of Systems ROS: No change since H&P Vital Signs and I&O's Vital Signs: Temperature 98.2 F Pulse Rate [Left Brachial] 86 Pulse Rate 79 Respiratory Rate 20 Blood Pressure [Left Arm] 185/82 Blood Pressure 208/88 O2 Sat by Pulse Oximetry 91 Intake and Output: Intake & Output 02/09/21 02/10/21 02/11/21 02/12/21 23:59 23:59 23:59 23:59 Intake Total 2722 / 2722 2175 / 2175 2125 / 2125 1260 / 1260 Balance 2722 / 2722 2175 / 2175 212 / 2124 1260 / 1260 Physical Exam Oriented: Normal Eyes: Normal Ear: Normal Nose: Normal Throat: Normal Respiratory: Generalized and Diminished Cardiovascular: Normal Auscultation: Bowel Sounds: Normal Tenderness: Normal Skin: Decreased Turgur Musculoskeletal: Back:Lumbar Psychiatric: Normal Mood Description: Calm Affect: Normal Speech Pattern: Clear and Appropriate Laboratory and Diagnostics Result Diagrams: 02/12/21 06:10 02/12/21 06:10 Labs: 02/10/21 16:54 Sputum - Expectorated Sputum Sputum Culture - Preliminary 02/10/21 16:54 Sputum - Expectorated Sputum - Final Laboratory WBC 9.3 X10^3/uL (3.6-10.0) 02/12/21 06:10 RBC 3.80 X10^6/uL (3.5-5.4) 02/12/21 06:10 Hgb 11.6 g/dL (12.0-16.0) L 02/12/21 06:10 Hct 34.1 % (36.0-47.0) L 02/12/21 06:10 MCV 89.7 fL (80.0-100.0) 02/12/21 06:10 MCH 30.4 pg (27.0-34.0) 02/12/21 06:10 MCHC 33.9 g/dL (33.0-35.0) 02/12/21 06:10 RDW 13.5 % (11.6-16.5) 02/12/21 06:10 Plt Count 392 X10^3/uL (150.0-450.0) 02/12/21 06:10 Plt Count Comment Adequate (ADEQUATE) 02/12/21 06:10 MPV 7.3 fL (7.4-11.0) L 02/12/21 06:10 Neut % (Auto) 87.6 % (42.0-75.0) H 02/12/21 06:10 Lymph % (Auto) 7.0 % (21.0-51.0) L 02/12/21 06:10 [place] % (Auto) 5.3 % (0.0-13.0) 02/12/21 06:10 Eos % (Auto) 0.0 % (0.9-2.9) L 02/12/21 06:10 Baso % (Auto) 0.1 % (0.2-1.0) L 02/12/21 06:10 Neut # (Auto) 8.1 x10^3/uL (2.2-4.8) H 02/12/21 06:10 Lymph # (Auto) 0.6 X10^3/uL (1.3-2.9) L 02/12/21 06:10 [place] # (Auto) 0.5 x10^3/uL (0.3-0.8) 02/12/21 06:10 Eos # (Auto) 0.0 x10^3/uL (0.0-0.2) 02/12/21 06:10 Baso # (Auto) 0.0 X10^3/uL (0.0-0.1) 02/12/21 06:10 Absolute Nucleated RBC 0.1 /100WBC 02/12/21 06:10 Total Counted 100 02/12/21 06:10 Neutrophils % (Manual) 87 % (39-76) H 02/12/21 06:10 Band Neutrophils % 4 % (0-10) 02/11/21 05:15 Lymphocytes % (Manual) 9 % (13-43) L 02/12/21 06:10 Monocytes % (Manual) 4 % (4-9) 02/12/21 06:10 Plt Morphology Comment Normal (NORMAL) 02/12/21 06:10 RBC Morphology Normal (NORMAL) 02/12/21 06:10 D-Dimer 0.53 ug/ml (0.0-0.57) 02/06/21 04:23 Sample Site Rr 02/12/21 05:00 ABG pH 7.530 (7.35-7.45) H 02/12/21 05:00 ABG pCO2 40.0 mmHg (35.0-45.0) 02/12/21 05:00 ABG pO2 62.0 mmHg (80.0-100.0) L 02/12/21 05:00 ABG HCO3 33.4 mmol/L (22-26) H* 02/12/21 05:00 ABG O2 Saturation 94.0 % (90-100) 02/12/21 05:00 ABG Base Excess 9.8 mmol/L (-2.0-2.0) H 02/12/21 05:00 Juan Carlos Test Pos 02/12/21 05:00 A-a Gradient 344.0 mmHg 02/12/21 05:00 FiO2 64.0 02/12/21 05:00 Blood Gas Comments Narciso well sw 02/12/21 05:00 Sodium 141 mmol/L (136-145) 02/12/21 06:10 Corrected Sodium 145 mmol/L (136-145) 02/12/21 06:10 Potassium 3.1 mmol/L (3.5-5.1) L 02/12/21 06:10 Chloride 103 mmol/L (98-107) 02/12/21 06:10 Carbon Dioxide 33.6 mmol/L (21-32) H 02/12/21 06:10 BUN 12 mg/dL (7-18) 02/12/21 06:10 Creatinine 0.88 mg/dL (0.55-1.02) 02/12/21 06:10 Est GFR (MDRD) Af Amer > 60 (>60) 02/12/21 06:10 Est GFR (MDRD) Non-Af > 60 (>60) 02/12/21 06:10 Glucose 267 mg/dL (65-99) H 02/12/21 06:10 POC Glucose (mg/dL) 186 mg/dL (65-99) H 02/12/21 16:51 Hemoglobin A1c 11.9 % 02/01/21 07:34 Calcium 8.5 mg/dL (8.5-10.1) 02/12/21 06:10 Corrected Calcium 10.0 mg/dL (8.5-10.1) 02/12/21 06:10 Magnesium 2.1 mg/dL (1.7-2.9) 02/09/21 04:24 Total Bilirubin 0.30 mg/dL (0.2-1.0) 02/12/21 06:10 AST 22 Units/L (15-37) 02/12/21 06:10 ALT 43 Units/L (12-78) 02/12/21 06:10 Alkaline Phosphatase 44 Units/L (46-116) L 02/12/21 06:10 Creatine Kinase 23 Units/L (26-192) L 01/31/21 23:30 CK-MB (CK-2) < 1.0 ng/mL (0-4.0) 01/31/21 23:30 CK/CKMB % Calc 4.4 % (<4) 01/31/21 23:30 Troponin I < 0.02 ng/mL (0-1.5) 01/31/21 23:30 C-Reactive Protein 3.20 mg/L (0-3.0) H 02/06/21 04:23 B-Natriuretic Peptide 48.0 pg/mL (0-79) 02/06/21 04:23 Total Protein 5.2 g/dL (6.4-8.2) L 02/12/21 06:10 Albumin 2.1 g/dL (3.4-5.0) L 02/12/21 06:10 Globulin 3.1 g/dL (2.5-4.5) 02/12/21 06:10 Albumin/Globulin Ratio 0.7 Ratio (1.1-2.1) L 02/12/21 06:10 Plan (1) Pneumonia due to COVID-19 virus: Status: Acute (2) Hypoxia: Status: Acute (3) Diabetes mellitus: Status: Chronic Qualifiers: Diabetes mellitus complication status: with hyperglycemia Diabetes mellitus senior care insulin use: unspecified exterminator helper termite insulin use status Diabetes mellitus type: type 2 Qualified Code(s): E11.65 - Type 2 diabetes mellitus with hyperglycemia (4) CAD (coronary artery disease): Status: Chronic Qualifiers: Associated angina: unspecified whether angina present Coronary Disease- Associated Artery/Lesion type: [place] artery [place] vs. transplanted heart: na tive heart Qualified Code(s): I25.10 - Atherosclerotic heart disease of [place] coronary artery without angina pectoris (5) Hypertension: Status: Chronic Qualifiers: Hypertension type: primary hypertension Qualified Code(s): I10 - Essential (primary) hypertension (6) Acute respiratory failure with hypoxia: Status: Acute
[2021-02-12] MEDS: SNACK - Diabetic Appropriate PO SCH (20:07)
[2021-02-12] MEDS: K-RIDER 10 MEQ/NS 100 ML 10 MEQ/100 ML BAG IV PRN ×2 (22:02→23:00)
[2021-02-13] MEDS ORDERED: NS 1/2 1000 ML IV 1,000 ML IV ONE (00:13)
[2021-02-13] MEDS: K-RIDER 10 MEQ/NS 100 ML 10 MEQ/100 ML BAG IV PRN (00:17)
[2021-02-13] MEDS: NS 1/2 1000 ML IV 1,000 ML IV SCH ×2 (00:17→14:08)
[2021-02-13] MEDS: APRESOLINE INJ 20 MG VIAL IVP PRN (00:45)
[2021-02-13] MEDS: ASCORBIC ACID INJ MULTI-DOSE VIAL 1,500 MG in NS 100 ML IV 100 ML IV SCH ×3 (01:58→17:23)
[2021-02-13] MEDS: SOLU-Medrol 125 MG VIAL IVP SCH ×3 (05:36→21:16)
[2021-02-13 06:25] LABS: BASOPHILS % (AUTO) 0.1 % (0.2-1.0); HEMATOCRIT 32.3 % (36.0-47.0); LYMPHOCYTES # (AUTO) 0.9 X10^3/uL (1.3-2.9); LYMPHOCYTES % (AUTO) 9.4 % (21.0-51.0); MEAN CORPUSCULAR HEMOGLOBIN 30.4 pg (27.0-34.0); MEAN CORPUSCULAR VOLUME 89.3 fL (80.0-100.0); MEAN PLATELET VOLUME 7.2 fL (7.4-11.0); MONOCYTES # (AUTO) 0.6 x10^3/uL (0.3-0.8); MONOCYTES % (AUTO) 6.3 % (0.0-13.0); NEUTROPHILS # (AUTO) 7.8 x10^3/uL (2.2-4.8); NEUTROPHILS % (AUTO) 84.2 % (42.0-75.0); PLATELET COUNT 351 X10^3/uL (150.0-450.0); RED BLOOD COUNT 3.62 X10^6/uL (3.5-5.4); RED CELL DISTRIBUTION WIDTH 13.6 % (11.6-16.5); WHITE BLOOD COUNT 9.2 X10^3/uL (3.6-10.0)
[2021-02-13 06:34] LABS: ALANINE AMINOTRANSFERASE 43 Units/L (12-78); ALBUMIN 2.1 g/dL (3.4-5.0); ALKALINE PHOSPHATASE 49 Units/L (46-116); ASPARTATE AMINO TRANSFERASE 23 Units/L (15-37); BLOOD UREA NITROGEN 18 mg/dL (7-18); CALCIUM 8.2 mg/dL (8.5-10.1); CARBON DIOXIDE 32.9 mmol/L (21-32); CHLORIDE 105 mmol/L (98-107); COR CA(FOR HYPOALB) 9.7 mg/dL (8.5-10.1); COR NA(FOR HYPERGLY) 143 mmol/L (136-145); CREATININE 0.84 mg/dL (0.55-1.02); SODIUM 142 mmol/L (136-145); eGFR NON BLACK RACES > 60 (>60)
[2021-02-13] MEDS ORDERED: GLUCOPHAGE ONE ×2 (07:24→19:11)
--- NOTE | 2021-02-13 07:30 | RAD ---
HISTORYCOVID-19 pneumoniaSTUDYAP [id number]/04/2021FINDINGSContinued normal heart size with similar appearance of bilateral per ipheral airspace infiltrates. There is slight interval increase in size of the right pneumothorax, no w estimated at 10-15 percent. No tension effect is seen.IMPRESSIONStable appearance of pneumonia. Sli ghtly increased right pneumothorax.Electronically signed by: CHELE RUVALCABA (Feb 13, 2021 07:28:14)
[2021-02-13] MEDS: PROTONIX INJ 40 MG VIAL IVP SCH ×2 (08:43→21:16)
[2021-02-13] MEDS: ZITHROMAX INJ 500 MG VIAL 500 MG in NS 250 ML IV 250 ML IV SCH (08:44)
[2021-02-13] MEDS: LEVEMIR SC SCH (08:51)
[2021-02-13] MEDS: LOVENOX INJ 30 MG SYR SC SCH ×2 (08:51→21:16)
[2021-02-13] MEDS: BROVANA IN SCH ×2 (09:25→20:20)
[2021-02-13] MEDS: PULMICORT NEB TX 0.5 MG NEB SCH ×2 (09:25→20:20)
[2021-02-13] MEDS: GLUCOPHAGE PO SCH ×2 (09:29→21:17)
[2021-02-13] MEDS: NORVASC TAB 5 MG PO SCH (09:30)
[2021-02-13] MEDS: ROBITUSSIN DM PO SCH ×4 (09:31→21:17)
[2021-02-13] MEDS: VITAMIN A PO SCH (09:31)
[2021-02-13] MEDS: PLAVIX PO SCH (09:31)
[2021-02-13] MEDS: VITAMIN D3 125 mcg (5,000 UNITS) PO SCH (09:32)
[2021-02-13] MEDS: ZESTRIL TAB 40 MG PO SCH (09:32)
[2021-02-13] MEDS: ZINC SULFATE PO SCH ×2 (09:32→21:17)
[2021-02-13] MEDS: PROzac PO SCH (09:33)
[2021-02-13] MEDS: LIPITOR TAB 10 MG PO SCH (09:33)
[2021-02-13] MEDS: APRESOLINE TAB 10 MG PO SCH ×2 (09:33→21:16)
[2021-02-13] MEDS: TRICOR TAB 160 MG PO SCH (09:33)
[2021-02-13] MEDS: K-DUR TAB 20 MEQ PO PRN (11:11)
[2021-02-13] MEDS: CATAPRES-TTS-2 TD SCH (14:16)
--- NOTE | 2021-02-13 16:30 | PCM.PROG ---
Progress Note Progress Note for Day of Date of Exam: 02/13/21 Subjective Subjective: Patient seen at bedside, no acute events overnight. Patient states she is feeling better. She is on HHFNC FiO2 75%. Denies fever or chills. She reports good appetite. Labs: WBC 9.2 Hgb 1 K: 3.4 Glucose 134 BUN/Cr: 18/0.84 CRP <0.50 ABG 7.53/40/62/33 CXR: bilateral infiltrates noted, slight increase in right pneumothorax 10-5%, no tension effect. Plan: Wean O2 as tolerated to keep sats > 92%. Continue current treatment with IV Solumedrol and Azithromycin. Continue nebs, pulmicort and IS. Repeat CXR in the AM. Consult surgery for increased pneumothorax. Patient is not in any r espiratory distress. Continue vitamin support. PT/OT as tolerated. Continue home medications. Monitor AM labs/imaging. Time spent for clinical assessment, reviewing labs/imaging, physical exam, de cision making and documentation greater than 45 mins. Past Medical Family Social History Past Med/Fam/Surg Hx: No changes since H&P Allergies: Allergies morphine Allergy (Verified 01/29/21 19:07) Review of Systems ROS: No change since H&P Vital Signs and I&O's Vital Signs: Temperature 98.1 F Pulse Rate [Left Brachial] 75 Pulse Rate 72 Respiratory Rate 20 Blood Pressure [Left Arm] 147/73 Blood Pressure 208/88 O2 Sat by Pulse Oximetry 94 Intake and Output: Intake & Output 02/10/21 02/11/21 02/12/21 02/13/21 23:59 23:59 23:59 23:59 Intake Total 2175 / 2175 2125 / 5 1520 / 1520 1426 / 1426 Balance 2175 / 2175 2124 / 2124 1520 / 1520 1426 / 1426 Physical Exam Oriented: Normal Eyes: Normal Ear: Normal Nose: Normal Throat: Normal Respiratory: Generalized and Diminished Cardiovascular: Normal Auscultation: Bowel Sounds: Normal Tenderness: Normal Skin: Decreased Turgur Musculoskeletal: Back:Lumbar Psychiatric: Normal Mood Description: Calm Affect: Normal Speech Pattern: Clear and Appropriate Laboratory and Diagnostics Result Diagrams: 02/13/21 05:59 02/13/21 05:59 Labs: 02/10/21 16:54 Sputum - Expectorated Sputum Sputum Culture - Preliminary 02/10/21 16:54 Sputum - Expectorated Sputum - Final Laboratory WBC 9.2 X10^3/uL (3.6-10.0) 02/13/21 05:59 RBC 3.62 X10^6/uL (3.5-5.4) 02/13/21 05:59 Hgb 11.0 g/dL (12.0-16.0) L 02/13/21 05:59 Hct 32.3 % (36.0-47.0) L 02/13/21 05:59 MCV 89.3 fL (80.0-100.0) 02/13/21 05:59 MCH 30.4 pg (27.0-34.0) 02/13/21 05:59 MCHC 34.0 g/dL (33.0-35.0) 02/13/21 05:59 RDW 13.6 % (11.6-16.5) 02/13/21 05:59 Plt Count 351 X10^3/uL (150.0-450.0) 02/13/21 05:59 Plt Count Comment Adequate (ADEQUATE) 02/12/21 06:10 MPV 7.2 fL (7.4-11.0) L 02/13/21 05:59 Neut % (Auto) 84.2 % (42.0-75.0) H 02/13/21 05:59 Lymph % (Auto) 9.4 % (21.0-51.0) L 02/13/21 05:59 [place] % (Auto) 6.3 % (0.0-13.0) 02/13/21 05:59 Eos % (Auto) 0.0 % (0.9-2.9) L 02/13/21 05:59 Baso % (Auto) 0.1 % (0.2-1.0) L 02/13/21 05:59 Neut # (Auto) 7.8 x10^3/uL (2.2-4.8) H 02/13/21 05:59 Lymph # (Auto) 0.9 X10^3/uL (1.3-2.9) L 02/13/21 05:59 [place] # (Auto) 0.6 x10^3/uL (0.3-0.8) 02/13/21 05:59 Eos # (Auto) 0.0 x10^3/uL (0.0-0.2) 02/13/21 05:59 Baso # (Auto) 0.0 X10^3/uL (0.0-0.1) 02/13/21 05:59 Absolute Nucleated RBC 0.0 /100WBC 02/13/21 05:59 Total Counted 100 02/12/21 06:10 Neutrophils % (Manual) 87 % (39-76) H 02/12/21 06:10 Band Neutrophils % 4 % (0-10) 02/11/21 05:15 Lymphocytes % (Manual) 9 % (13-43) L 02/12/21 06:10 Monocytes % (Manual) 4 % (4-9) 02/12/21 06:10 Plt Morphology Comment Normal (NORMAL) 02/12/21 06:10 RBC Morphology Normal (NORMAL) 02/12/21 06:10 D-Dimer 0.53 ug/ml (0.0-0.57) 02/06/21 04:23 Sample Site Rr 02/12/21 05:00 ABG pH 7.530 (7.35-7.45) H 02/12/21 05:00 ABG pCO2 40.0 mmHg (35.0-45.0) 02/12/21 05:00 ABG pO2 62.0 mmHg (80.0-100.0) L 02/12/21 05:00 ABG HCO3 33.4 mmol/L (22-26) H* 02/12/21 05:00 ABG O2 Saturation 94.0 % (90-100) 02/12/21 05:00 ABG Base Excess 9.8 mmol/L (-2.0-2.0) H 02/12/21 05:00 Juan Carlos Test Pos 02/12/21 05:00 A-a Gradient 344.0 mmHg 02/12/21 05:00 FiO2 64.0 02/12/21 05:00 Blood Gas Comments [facility] well 02/12/21 05:00 Sodium 142 mmol/L (136-145) 02/13/21 05:59 Corrected Sodium 143 mmol/L (136-145) 02/13/21 05:59 Potassium 3.4 mmol/L (3.5-5.1) L 02/13/21 05:59 Chloride 105 mmol/L (98-107) 02/13/21 05:59 Carbon Dioxide 32.9 mmol/L (21-32) H 02/13/21 05:59 BUN 18 mg/dL (7-18) 02/13/21 05:59 Creatinine 0.84 mg/dL (0.55-1.02) 02/13/21 05:59 Est GFR (MDRD) Af Amer > 60 (>60) 02/13/21 05:59 Est GFR (MDRD) Non-Af > 60 (>60) 02/13/21 05:59 Glucose 138 mg/dL (65-99) H 02/13/21 05:59 POC Glucose (mg/dL) 133 mg/dL (65-99) H 02/13/21 11:39 Hemoglobin A1c 11.9 % 02/01/21 07:34 Calcium 8.2 mg/dL (8.5-10.1) L 02/13/21 05:59 Corrected Calcium 9.7 mg/dL (8.5-10.1) 02/13/21 05:59 Magnesium 2.1 mg/dL (1.7-2.9) 02/09/21 04:24 Total Bilirubin 0.30 mg/dL (0.2-1.0) 02/13/21 05:59 AST 23 Units/L (15-37) 02/13/21 05:59 ALT 43 Units/L (12-78) 02/13/21 05:59 Alkaline Phosphatase 49 Units/L (46-116) 02/13/21 05:59 Creatine Kinase 23 Units/L (26-192) L 01/31/21 23:30 CK-MB (CK-2) < 1.0 ng/mL (0-4.0) 01/31/21 23:30 CK/CKMB % Calc 4.4 % (<4) 01/31/21 23:30 Troponin I < 0.02 ng/mL (0-1.5) 01/31/21 23:30 C-Reactive Protein < 0.50 mg/L (0-3.0) 02/13/21 05:59 B-Natriuretic Peptide 48.0 pg/mL (0-79) 02/06/21 04:23 Total Protein 5.0 g/dL (6.4-8.2) L 02/13/21 05:59 Albumin 2.1 g/dL (3.4-5.0) L 02/13/21 05:59 Globulin 2.9 g/dL (2.5-4.5) 02/13/21 05:59 Albumin/Globulin Ratio 0.7 Ratio (1.1-2.1) L 02/13/21 05:59 Plan (1) Acute respiratory failure with hypoxia: Status: Acute (2) Pneumothorax, right: Status: Acute (3) Pneumonia due to COVID-19 virus: Status: Acute (4) Hypoxia: Status: Acute (5) Diabetes mellitus: Status: Chronic Qualifiers: Diabetes mellitus complication status: with hyperglycemia Diabetes mellitus longterm insulin use: unspecified long winder tender insulin use status Diabetes mellitus type: type 2 Qualified Code(s): E11.65 - Type 2 diabetes mellitus with hyperglycemia (6) CAD (coronary artery disease): Status: Chronic Qualifiers: Associated angina: unspecified whether angina present Coronary Disease- Associated Artery/Lesion type: [place] artery [place] vs. transplanted heart: [place] heart Qualified Code(s): I25.10 - Atherosclerotic heart disease of [place] coronary artery without angina pectoris (7) Hypertension: Status: Chronic Qualifiers: Hypertension type: primary hypertension Qualified Code(s): I10 - Essential (primary) hypertension
[2021-02-13] MEDS: SNACK - Diabetic Appropriate PO SCH (20:15)
--- NOTE | 2021-02-13 23:03 | DR.CONSULT ---
CONSULT Consultation for Day of: Date: 02/13/21 Chief Complaint Chief Complaint: 10-15% right-sided pneumothorax. Allergies Allergies Allergy/AdvReac Type Severity Reaction Status Date / Time morphine Allergy Verified 01/29/21 19:07 History of Present Illness History of Present Illness: This patient is a 60-year-old female with approximate 10 day admission for Covid pneumonia. Patient has had a small pneumothorax which is now increased to 10 to 15%. No shortness of breath. She has done well from the standpoint of her pneumonia and has been improving. Past history of myocardial infarction, multiple coronary stents placed, diabetes, hypertension, anxiety. I was asked to evaluate or to consider placement of right-sided chest tube or the small pneumothorax. Past Medical History Past Medical History: Anxiety, Arthritis, Coronary Artery Disease, Diabetes, Hypertension and CT Past Surgical History Surgical History: Angioplasty/Stents and Cholecystectomy Family History Family Medical History: CT, Heart Failure and Hypertension Social History Does patient currently use any type of tobacco product: No Have you used tobacco products in the last 12 months: No Type of Tobacco Use: None Does any household member use tobacco: No Alcohol Use: None Medications Home Medications: morphine Allergy (Verified 01/29/21 19:07) CONTINUE taking the following medications alprazolam 0.5 mg PO DAILY 01/31/21 [History] atenolol-chlorthalidone 1 tab PO DAILY 01/31/21 [History] clonidine HCl 0.2 mg PO HS 01/31/21 [History] clopidogrel 75 mg PO DAILY 01/31/21 [History] diclofenac sodium 75 mg PO BID 01/31/21 [History] fenofibrate 160 mg PO DAILY 01/31/21 [History] fluoxetine 20 mg PO DAILY 01/31/21 [History] fluoxetine 20 mg PO DAILY 01/31/21 [History] gabapentin 100 mg PO TID 01/31/21 [History] insulin detemir U-100 [Levemir U-100 Insulin] 100 unit SUBCUT DAILY 01/31/21 [History] lisinopril 40 mg PO DAILY 01/31/21 [History] lovastatin 20 mg PO DAILY 01/31/21 [History] metformin 500 mg PO BID 01/31/21 [History] Protocol of Remdesiver, steroids and antibiotics to treat Covid pneumonia. Review of Systems Constitutional: Other (Initial presentation of shortness of breath, improving) ENT: No Symptoms Reported Respiratory: Shortness of Breath Cardiovascular: No Symptoms Reported Gastrointestinal: No Symptoms Reported Genitourinary: No Symptoms Reported Musculoskeletal: No Symptoms Reported Neurological: No Symptoms Reported Physical Exam Vital Signs: Temperature 97.6 F Pulse Rate [Left Brachial] 88 Pulse Rate 83 Respiratory Rate 18 Blood Pressure [Left Arm] 181/84 Blood Pressure 208/88 O2 Sat by Pulse Oximetry 96 Oriented: Normal, Time, Person and Place Eyes: Normal Ear: Normal Throat: Normal Respiratory: RUL Diminished and RLL Diminished Cardiovascular: Normal : Normal Auscultation: Bowel Sounds: Normal Palpation: Normal Tenderness: Normal Skin: Normal Musculoskeletal: Normal Psychiatric: Normal Plan Plan: Patients pneumothorax is small. With the bilateral pneumonia it is unlikely to get any larger due to the edema of the lungs. At this point will obtain repeat chest x-ray in the morning and reassess. May still require right- sided chest tube. Encourage consensus from
[2021-02-14] MEDS: ASCORBIC ACID INJ MULTI-DOSE VIAL 1,500 MG in NS 100 ML IV 100 ML IV SCH ×3 (01:27→21:51)
[2021-02-14 05:24] LABS: BASOPHILS % (AUTO) 0.3 % (0.2-1.0); HEMATOCRIT 32.5 % (36.0-47.0); LYMPHOCYTES # (AUTO) 0.5 X10^3/uL (1.3-2.9); LYMPHOCYTES % (AUTO) 4.8 % (21.0-51.0); MEAN CORPUSCULAR HEMOGLOBIN 30.4 pg (27.0-34.0); MEAN CORPUSCULAR HGB CONC 33.9 g/dL (33.0-35.0); MEAN CORPUSCULAR VOLUME 89.7 fL (80.0-100.0); MEAN PLATELET VOLUME 7.4 fL (7.4-11.0); MONOCYTES # (AUTO) 0.4 x10^3/uL (0.3-0.8); MONOCYTES % (AUTO) 3.6 % (0.0-13.0); NEUTROPHILS # (AUTO) 8.9 x10^3/uL (2.2-4.8); NEUTROPHILS % (AUTO) 91.3 % (42.0-75.0); PLATELET COUNT 334 X10^3/uL (150.0-450.0); RED BLOOD COUNT 3.63 X10^6/uL (3.5-5.4); WHITE BLOOD COUNT 9.8 X10^3/uL (3.6-10.0)
[2021-02-14] MEDS: APRESOLINE INJ 20 MG VIAL IVP PRN ×2 (05:38→14:42)
[2021-02-14] MEDS: SOLU-Medrol 125 MG VIAL IVP SCH ×3 (05:38→21:53)
[2021-02-14] MEDS: HumuLIN R SC PRN ×2 (05:39→21:54)
[2021-02-14 05:50] LABS: ALANINE AMINOTRANSFERASE 59 Units/L (12-78); ALBUMIN 2.1 g/dL (3.4-5.0); ALKALINE PHOSPHATASE 49 Units/L (46-116); ASPARTATE AMINO TRANSFERASE 39 Units/L (15-37); BLOOD UREA NITROGEN 17 mg/dL (7-18); CALCIUM 8.1 mg/dL (8.5-10.1); CHLORIDE 103 mmol/L (98-107); COR CA(FOR HYPOALB) 9.6 mg/dL (8.5-10.1); COR NA(FOR HYPERGLY) 144 mmol/L (136-145); CREATININE 0.85 mg/dL (0.55-1.02); SODIUM 138 mmol/L (136-145); TOTAL PROTEIN 5.1 g/dL (6.4-8.2); eGFR NON BLACK RACES > 60 (>60)
[2021-02-14 06:22] LABS: PLATELET MORPHOLOGY COMMENT NORMAL (NORMAL)
[2021-02-14] MEDS: BROVANA IN SCH ×2 (09:10→20:31)
[2021-02-14] MEDS: PULMICORT NEB TX 0.5 MG NEB SCH ×2 (09:10→20:31)
[2021-02-14] MEDS: PLAVIX PO SCH (09:35)
[2021-02-14] MEDS: PROTONIX INJ 40 MG VIAL IVP SCH ×2 (09:35→21:52)
[2021-02-14] MEDS: ZITHROMAX INJ 500 MG VIAL 500 MG in NS 250 ML IV 250 ML IV SCH (09:35)
[2021-02-14] MEDS: VITAMIN A PO SCH (09:35)
[2021-02-14] MEDS: VITAMIN D3 125 mcg (5,000 UNITS) PO SCH (09:35)
[2021-02-14] MEDS ORDERED: GLUCOPHAGE ONE ×2 (09:41→19:20)
[2021-02-14] MEDS: TRICOR TAB 160 MG PO SCH (09:52)
[2021-02-14] MEDS: PROzac PO SCH (09:54)
[2021-02-14] MEDS: ZESTRIL TAB 40 MG PO SCH (09:55)
[2021-02-14] MEDS: GLUCOPHAGE PO SCH ×2 (09:55→21:52)
[2021-02-14] MEDS: APRESOLINE TAB 10 MG PO SCH ×2 (09:55→21:52)
[2021-02-14] MEDS: LIPITOR TAB 10 MG PO SCH (09:55)
[2021-02-14] MEDS: NORVASC TAB 5 MG PO SCH (09:56)
[2021-02-14] MEDS: ZINC SULFATE PO SCH ×2 (09:56→21:53)
[2021-02-14] MEDS: ROBITUSSIN DM PO SCH ×4 (09:56→21:53)
--- NOTE | 2021-02-14 10:00 | RAD ---
HISTORYF/U PNEUMOTHORAXSTUDYCHEST, 1 [id number]/05/2021FINDINGSRight pneumothorax is not significantly changed. Small in size.Focal areas of abnormal opacity compatible with bronchopneumonia are unchanged.Heart size is normal.Bones are unremarkable.Surgical clips are present in the right upper abdomen, probably from a cholecystectomy.IMPRESSION1. Unchanged pneumothorax2. Unchanged bronchopneumoniaElectronically signed by: Clarence Sears (Feb 14, 2021 09:57:25)
[2021-02-14] MEDS: LEVEMIR SC SCH (11:31)
[2021-02-14] MEDS: LOVENOX INJ 30 MG SYR SC SCH ×2 (11:50→21:51)
[2021-02-14] MEDS: NS 1/2 1000 ML IV 1,000 ML IV SCH (14:41)
--- NOTE | 2021-02-14 15:19 | NOTE.SOAP ---
Soap Note Note for Day of Date of Exam: 02/14/21 Subjective Data Subjective Data: No complaints. No SOB Objective Data Temperature: 97.9 F Pulse Rate: 86 Respiratory Rate: 18 Blood Pressure: 185/89 O2 Sat by Pulse Oximetry: 94 Objective Data: decreased BS on right , CXR no change in size of small right side pneumothorax. Assessment Assessment: right pneumothorax, presumed spontaneous Plan Plan: Continue to observe.
--- NOTE | 2021-02-14 15:41 | PCM.PROG ---
Progress Note Progress Note for Day of Date of Exam: 02/14/21 Subjective Subjective: Patient seen at bedside, no acute events overnight. Patient states she is feeling better. She is on HHFNC FiO2 45%. Denies fever or chills. She reports good appetite. Patient was seen by Dr. Greer yesterday and he recommended to continue monitoring CXR. Labs: WBC 9.8 Hgb 11 K: 3.9 Glucose 330 BUN/Cr: 17/0.85 CRP <0.50 ABG 7.53/40/62/33 CXR: stable unchanged right pneumothorax and bronchopneumonia Plan: Wean O2 as tolerated to keep sats > 92%. Continue current treatment with IV Solumedrol and Azithromycin. Continue nebs, pulmicort and IS. Repeat CXR in the AM. Follow surgery recommendations. Patient is not in any respiratory distress and is doing better with weaning of HHFNC. Continue vitamin support. PT/OT as tolerated. Continue home medications. Monitor AM labs/imaging. Time spent for clinical assessment, reviewing labs/imaging, physical exam, decision making and documentation greater than 45 mins. Past Medical Family Social History Past Med/Fam/Surg Hx: No changes since H&P Allergies: Allergies morphine Allergy (Verified 01/29/21 19:07) Review of Systems ROS: No change since H&P Vital Signs and I&O's Vital Signs: Temperature 97.9 F Pulse Rate [Left Brachial] 86 Pulse Rate 86 Respiratory Rate 18 Blood Pressure [Left Arm] 185/89 Blood Pressure 185/89 O2 Sat by Pulse Oximetry 94 Intake and Output: Intake & Output 02/11/21 02/12/21 02/13/21 02/14/21 23:59 23:59 23:59 23:59 Intake Total 2124 1520 / 1520 1866 / 1866 746 / 746 Balance 2124 1520 / 1520 1866 / 1866 746 / 746 Physical Exam Oriented: Normal, Time, Person and Place Eyes: Normal Ear: Normal Nose: Normal Throat: Normal Respiratory: Generalized and Diminished Cardiovascular: Normal Auscultation: Bowel Sounds: Normal Tenderness: Normal Skin: Normal Musculoskeletal: Normal Psychiatric: Normal Mood Description: Calm Affect: Normal Speech Pattern: Clear and Appropriate Laboratory and Diagnostics Result Diagrams: 02/14/21 05:05 02/14/21 05:05 Labs: 02/10/21 16:54 Sputum - Expectorated Sputum Sputum Culture - Preliminary 02/10/21 16:54 Sputum - Expectorated Sputum - Final Laboratory WBC 9.8 X10^3/uL (3.6-10.0) 02/14/21 05:05 RBC 3.63 X10^6/uL (3.5-5.4) 02/14/21 05:05 Hgb 11.0 g/dL (12.0-16.0) L 02/14/21 05:05 Hct 32.5 % (36.0-47.0) L 02/14/21 05:05 MCV 89.7 fL (80.0-100.0) 02/14/21 05:05 MCH 30.4 pg (27.0-34.0) 02/14/21 05:05 MCHC 33.9 g/dL (33.0-35.0) 02/14/21 05:05 RDW 14.0 % (11.6-16.5) 02/14/21 05:05 Plt Count 334 X10^3/uL (150.0-450.0) 02/14/21 05:05 Plt Count Comment Adequate (ADEQUATE) 02/14/21 05:05 MPV 7.4 fL (7.4-11.0) 02/14/21 05:05 Neut % (Auto) 91.3 % (42.0-75.0) H 02/14/21 05:05 Lymph % (Auto) 4.8 % (21.0-51.0) L 02/14/21 05:05 [place] % (Auto) 3.6 % (0.0-13.0) 02/14/21 05:05 Eos % (Auto) 0.0 % (0.9-2.9) L 02/14/21 05:05 Baso % (Auto) 0.3 % (0.2-1.0) 02/14/21 05:05 Neut # (Auto) 8.9 x10^3/uL (2.2-4.8) H 02/14/21 05:05 Lymph # (Auto) 0.5 X10^3/uL (1.3-2.9) L 02/14/21 05:05 [place] # (Auto) 0.4 x10^3/uL (0.3-0.8) 02/14/21 05:05 Eos # (Auto) 0.0 x10^3/uL (0.0-0.2) 02/14/21 05:05 Baso # (Auto) 0.0 X10^3/uL (0.0-0.1) 02/14/21 05:05 Absolute Nucleated RBC 0.0 /100WBC 02/14/21 05:05 Total Counted 100 02/14/21 05:05 Neutrophils % (Manual) 98 % (39-76) H 02/14/21 05:05 Band Neutrophils % 4 % (0-10) 02/11/21 05:15 Lymphocytes % (Manual) 1 % (13-43) L 02/14/21 05:05 Monocytes % (Manual) 1 % (4-9) L 02/14/21 05:05 Plt Morphology Comment Normal (NORMAL) 02/14/21 05:05 RBC Morphology Normal (NORMAL) 02/14/21 05:05 D-Dimer 0.53 ug/ml (0.0-0.57) 02/06/21 04:23 Sample Site Rr 02/12/21 05:00 ABG pH 7.530 (7.35-7.45) H 02/12/21 05:00 ABG pCO2 40.0 mmHg (35.0-45.0) 02/12/21 05:00 ABG pO2 62.0 mmHg (80.0-100.0) L 02/12/21 05:00 ABG HCO3 33.4 mmol/L (22-26) H* 02/12/21 05:00 ABG O2 Saturation 94.0 % (90-100) 02/12/21 05:00 ABG Base Excess 9.8 mmol/L (-2.0-2.0) H 02/12/21 05:00 Juan Carlos Test Pos 02/12/21 05:00 A-a Gradient 344.0 mmHg 02/12/21 05:00 FiO2 64.0 02/12/21 05:00 Blood Gas Comments Narciso well sw 02/12/21 05:00 Sodium 138 mmol/L (136-145) 02/14/21 05:05 Corrected Sodium 144 mmol/L (136-145) 02/14/21 05:05 Potassium 3.9 mmol/L (3.5-5.1) 02/14/21 05:05 Chloride 103 mmol/L (98-107) 02/14/21 05:05 Carbon Dioxide 30.0 mmol/L (21-32) 02/14/21 05:05 BUN 17 mg/dL (7-18) 02/14/21 05:05 Creatinine 0.85 mg/dL (0.55-1.02) 02/14/21 05:05 Est GFR (MDRD) Af Amer > 60 (>60) 02/14/21 05:05 Est GFR (MDRD) Non-Af > 60 (>60) 02/14/21 05:05 Glucose 330 mg/dL (65-99) H 02/14/21 05:05 POC Glucose (mg/dL) 233 mg/dL (65-99) H 02/14/21 11:18 Hemoglobin A1c 11.9 % 02/01/21 07:34 Calcium 8.1 mg/dL (8.5-10.1) L 02/14/21 05:05 Corrected Calcium 9.6 mg/dL (8.5-10.1) 02/14/21 05:05 Magnesium 2.1 mg/dL (1.7-2.9) 02/09/21 04:24 Total Bilirubin 0.30 mg/dL (0.2-1.0) 02/14/21 05:05 AST 39 Units/L (15-37) H 02/14/21 05:05 ALT 59 Units/L (12-78) 02/14/21 05:05 Alkaline Phosphatase 49 Units/L (46-116) 02/14/21 05:05 Creatine Kinase 23 Units/L (26-192) L 01/31/21 23:30 CK-MB (CK-2) < 1.0 ng/mL (0-4.0) 01/31/21 23:30 CK/CKMB % Calc 4.4 % (<4) 01/31/21 23:30 Troponin I < 0.02 ng/mL (0-1.5) 01/31/21 23:30 C-Reactive Protein < 0.50 mg/L (0-3.0) 02/13/21 05:59 B-Natriuretic Peptide 48.0 pg/mL (0-79) 02/06/21 04:23 Total Protein 5.1 g/dL (6.4-8.2) L 02/14/21 05:05 Albumin 2.1 g/dL (3.4-5.0) L 02/14/21 05:05 Globulin 3.0 g/dL (2.5-4.5) 02/14/21 05:05 Albumin/Globulin Ratio 0.7 Ratio (1.1-2.1) L 02/14/21 05:05 Plan (1) Acute respiratory failure with hypoxia: Status: Acute (2) Pneumothorax, right: Status: Acute (3) Pneumonia due to COVID-19 virus: Status: Acute (4) Hypoxia: Status: Acute (5) Diabetes mellitus: Status: Chronic Qualifiers: Diabetes mellitus complication status: with hyperglycemia Diabetes mellitus shelter insulin use: unspecified shelter insulin use status Diabetes mellitus type: type 2 Qualified Code(s): E11.65 - Type 2 diabetes mellitus with hyperglycemia (6) CAD (coronary artery disease): Status: Chronic Qualifiers: Associated angina: unspecified whether angina present Coronary Disease- Associated Artery/Lesion type: [place] artery [place] vs. transplanted heart: [place] heart Qualified Code(s): I25.10 - Atherosclerotic heart disease of [place] coronary artery without angina pectoris (7) Hypertension: Status: Chronic Qualifiers: Hypertension type: primary hypertension Qualified Code(s): I10 - Essential (primary) hypertension
[2021-02-14] MEDS: SNACK - Diabetic Appropriate PO SCH (20:00)
[2021-02-15] MEDS: ASCORBIC ACID INJ MULTI-DOSE VIAL 1,500 MG in NS 100 ML IV 100 ML IV SCH ×3 (01:43→17:25)
[2021-02-15] MEDS: SOLU-Medrol 125 MG VIAL IVP SCH ×3 (05:38→21:04)
[2021-02-15] MEDS: HumuLIN R SC PRN ×3 (05:39→21:04)
[2021-02-15 06:25] LABS: ALANINE AMINOTRANSFERASE 45 Units/L (12-78); ALBUMIN 2.1 g/dL (3.4-5.0); ALKALINE PHOSPHATASE 47 Units/L (46-116); ASPARTATE AMINO TRANSFERASE 18 Units/L (15-37); BLOOD UREA NITROGEN 18 mg/dL (7-18); CALCIUM 8.4 mg/dL (8.5-10.1); CARBON DIOXIDE 30.2 mmol/L (21-32); CHLORIDE 102 mmol/L (98-107); COR CA(FOR HYPOALB) 9.9 mg/dL (8.5-10.1); COR NA(FOR HYPERGLY) 143 mmol/L (136-145); CREATININE 0.83 mg/dL (0.55-1.02); SODIUM 140 mmol/L (136-145); TOTAL PROTEIN 5.1 g/dL (6.4-8.2); eGFR NON BLACK RACES > 60 (>60)
[2021-02-15 06:27] LABS: BASOPHILS % (AUTO) 0.3 % (0.2-1.0); HEMATOCRIT 31.6 % (36.0-47.0); HEMOGLOBIN 10.9 g/dL (12.0-16.0); LYMPHOCYTES # (AUTO) 0.6 X10^3/uL (1.3-2.9); LYMPHOCYTES % (AUTO) 6.1 % (21.0-51.0); MEAN CORPUSCULAR HEMOGLOBIN 30.8 pg (27.0-34.0); MEAN CORPUSCULAR HGB CONC 34.4 g/dL (33.0-35.0); MEAN CORPUSCULAR VOLUME 89.6 fL (80.0-100.0); MEAN PLATELET VOLUME 7.3 fL (7.4-11.0); MONOCYTES # (AUTO) 0.4 x10^3/uL (0.3-0.8); MONOCYTES % (AUTO) 4.5 % (0.0-13.0); NEUTROPHILS # (AUTO) 8.8 x10^3/uL (2.2-4.8); NEUTROPHILS % (AUTO) 89.1 % (42.0-75.0); PLATELET COUNT 305 X10^3/uL (150.0-450.0); RED BLOOD COUNT 3.52 X10^6/uL (3.5-5.4); RED CELL DISTRIBUTION WIDTH 13.7 % (11.6-16.5); WHITE BLOOD COUNT 9.9 X10^3/uL (3.6-10.0)
[2021-02-15 07:03] LABS: BAND NEUTROPHILS % 1 % (0-10); METAMYELOCYTES % 2; MYELOCYTES % 1; PLATELET MORPHOLOGY COMMENT NORMAL (NORMAL)
[2021-02-15] MEDS ORDERED: GLUCOPHAGE ONE ×2 (07:11→19:08)
--- NOTE | 2021-02-15 08:00 | RAD ---
HISTORYCOVID PNEUMONIASTUDYCHEST, 1 [id number]/06/2021FINDINGSPatchy areas of opacity represents bronchopneumonia. Not much change from yesterday.Small right pneumothorax is present, slightly smaller than on the prior study. It only measures 4 mm at the right lateral chest wall.Heart size is normal.Bones are unremarkable.IMPRESSION1. Unchanged bronchopneumonia2. Stable small right pneumothoraxElectronically signed by: Clarence Sears (Feb 15, 2021 07:58:24)
[2021-02-15] MEDS: PROTONIX INJ 40 MG VIAL IVP SCH ×2 (08:27→21:03)
[2021-02-15] MEDS: ROBITUSSIN DM PO SCH ×4 (08:27→21:03)
[2021-02-15] MEDS: ZINC SULFATE PO SCH ×2 (08:28→21:03)
[2021-02-15] MEDS: PLAVIX PO SCH (08:29)
[2021-02-15] MEDS: ZESTRIL TAB 40 MG PO SCH (08:30)
[2021-02-15] MEDS: APRESOLINE TAB 10 MG PO SCH ×2 (08:30→21:03)
[2021-02-15] MEDS: LIPITOR TAB 10 MG PO SCH (08:30)
[2021-02-15] MEDS: LEVEMIR SC SCH (08:30)
[2021-02-15] MEDS: LOVENOX INJ 30 MG SYR SC SCH ×2 (08:31→21:02)
[2021-02-15] MEDS: VITAMIN A PO SCH (08:32)
[2021-02-15] MEDS: PROzac PO SCH (08:33)
[2021-02-15] MEDS: NORVASC TAB 5 MG PO SCH (08:33)
[2021-02-15] MEDS: VITAMIN D3 125 mcg (5,000 UNITS) PO SCH (08:34)
[2021-02-15] MEDS: GLUCOPHAGE PO SCH ×2 (08:34→21:03)
[2021-02-15] MEDS: TRICOR TAB 160 MG PO SCH (08:34)
[2021-02-15] MEDS: PULMICORT NEB TX 0.5 MG NEB SCH ×2 (08:35→20:54)
[2021-02-15] MEDS: BROVANA IN SCH ×2 (08:35→20:53)
[2021-02-15] MEDS: ZITHROMAX INJ 500 MG VIAL 500 MG in NS 250 ML IV 250 ML IV SCH (09:00)
[2021-02-15 09:40] LABS: ABG BASE EXCESS 7.4 mmol/L (-2.0-2.0)
[2021-02-15 09:41] LABS: ABG ALLEN TEST POS; ABG HCO3 31.2 mmol/L (22-26)
[2021-02-15] MEDS: K-DUR TAB 20 MEQ PO PRN (11:33)
[2021-02-15] MEDS: NS 1/2 1000 ML IV 1,000 ML IV SCH (14:00)
--- NOTE | 2021-02-15 14:19 | NOTE.SOAP ---
Soap Note Note for Day of Date of Exam: 02/15/21 Subjective Data Subjective Data: 60 yo female with COVID pneumonia,not intubated, in NAD with small right spontaneous pneumothorax. Doing well , NO SOB. Objective Data Temperature: 97.9 F Pulse Rate: 90 Respiratory Rate: 20 Blood Pressure: 179/84 O2 Sat by Pulse Oximetry: 98 Objective Data: decreased Breath sounds on the right. CXR- small right pneumothorax is even smaller Assessment Assessment: Right pneumothorax Plan Plan: This will probably not need any intervention. May be discharged home from my standpoint and make sure she has f/u with me in 1 week. I will sign off.
[2021-02-15] MEDS: APRESOLINE INJ 20 MG VIAL IVP PRN ×2 (17:31→23:45)
[2021-02-15] MEDS: SNACK - Diabetic Appropriate PO SCH (20:02)
[2021-02-16] MEDS: ASCORBIC ACID INJ MULTI-DOSE VIAL 1,500 MG in NS 100 ML IV 100 ML IV SCH ×2 (01:59→08:30)
[2021-02-16] MEDS ORDERED: NS 1/2 1000 ML IV 1,000 ML IV ONE (03:21)
[2021-02-16 05:12] LABS: BASOPHILS % (AUTO) 0.2 % (0.2-1.0); HEMATOCRIT 31.5 % (36.0-47.0); HEMOGLOBIN 10.8 g/dL (12.0-16.0); LYMPHOCYTES # (AUTO) 0.7 X10^3/uL (1.3-2.9); LYMPHOCYTES % (AUTO) 6.1 % (21.0-51.0); MEAN CORPUSCULAR HEMOGLOBIN 30.8 pg (27.0-34.0); MEAN CORPUSCULAR HGB CONC 34.4 g/dL (33.0-35.0); MEAN CORPUSCULAR VOLUME 89.4 fL (80.0-100.0); MEAN PLATELET VOLUME 7.4 fL (7.4-11.0); MONOCYTES # (AUTO) 0.5 x10^3/uL (0.3-0.8); MONOCYTES % (AUTO) 4.9 % (0.0-13.0); NEUTROPHILS # (AUTO) 9.7 x10^3/uL (2.2-4.8); NEUTROPHILS % (AUTO) 88.8 % (42.0-75.0); PLATELET COUNT 297 X10^3/uL (150.0-450.0); RED BLOOD COUNT 3.52 X10^6/uL (3.5-5.4)
[2021-02-16] MEDS: SOLU-Medrol 125 MG VIAL IVP SCH (05:32)
[2021-02-16] MEDS: NS 1/2 1000 ML IV 1,000 ML IV SCH (05:32)
[2021-02-16] MEDS: HumuLIN R SC PRN ×2 (05:36→12:43)
[2021-02-16 05:39] LABS: ALANINE AMINOTRANSFERASE 50 Units/L (12-78); ALBUMIN 2.2 g/dL (3.4-5.0); ALKALINE PHOSPHATASE 46 Units/L (46-116); ASPARTATE AMINO TRANSFERASE 23 Units/L (15-37); BLOOD UREA NITROGEN 14 mg/dL (7-18); CALCIUM 8.3 mg/dL (8.5-10.1); CARBON DIOXIDE 28.9 mmol/L (21-32); CHLORIDE 104 mmol/L (98-107); COR CA(FOR HYPOALB) 9.7 mg/dL (8.5-10.1); COR NA(FOR HYPERGLY) 144 mmol/L (136-145); CREATININE 0.78 mg/dL (0.55-1.02); SODIUM 140 mmol/L (136-145); TOTAL PROTEIN 5.2 g/dL (6.4-8.2); eGFR NON BLACK RACES > 60 (>60)
[2021-02-16 05:55] LABS: PLATELET MORPHOLOGY COMMENT NORMAL (NORMAL)
[2021-02-16 06:01] LABS: ABG ALLEN TEST POS; ABG BASE EXCESS 7.8 mmol/L (-2.0-2.0)
--- NOTE | 2021-02-16 07:58 | RAD ---
HISTORYCOVID PNEUMONIASTUDYCHEST, 1 [id number]/07/2021FINDINGSPatchy bilateral areas of opacity are present compatible with bronchopneumonia. This has probably not changed significantly.I believe the very small pneumothorax which was present previously has completely resolved.There are linear areas of lucency adjacent to the left mediastinum superimposed over the pulmonary artery. This may be pneumomediastinum. Similar finding along the right side of the mediastinum. This may be new or slightly progressed since yesterday.Heart size is normal.Bones are unremarkable.IMPRESSION1. Resolved right pneumothorax2. New pneumomediastinum3. Unchanged bronchopneumoniaElectronically signed by: Clarence Sears (Feb 16, 2021 07:57:18)
[2021-02-16] MEDS ORDERED: LOVENOX INJ 40 MG SYR SC SCH (09:00)
[2021-02-16] MEDS ORDERED: GLUCOPHAGE ONE (09:37)
[2021-02-16] MEDS: ZITHROMAX INJ 500 MG VIAL 500 MG in NS 250 ML IV 250 ML IV SCH (09:50)
[2021-02-16] MEDS: ROBITUSSIN DM PO SCH ×2 (09:52→12:44)
[2021-02-16] MEDS: LEVEMIR SC SCH (09:52)
[2021-02-16] MEDS: PROzac PO SCH (09:53)
[2021-02-16] MEDS: NORVASC TAB 5 MG PO SCH (09:53)
[2021-02-16] MEDS: ZESTRIL TAB 40 MG PO SCH (09:53)
[2021-02-16] MEDS: VITAMIN D3 125 mcg (5,000 UNITS) PO SCH (09:53)
[2021-02-16] MEDS: APRESOLINE TAB 10 MG PO SCH (09:54)
[2021-02-16] MEDS: GLUCOPHAGE PO SCH (09:54)
[2021-02-16] MEDS: PLAVIX PO SCH (09:54)
[2021-02-16] MEDS: LIPITOR TAB 10 MG PO SCH (09:54)
[2021-02-16] MEDS: VITAMIN A PO SCH (09:55)
[2021-02-16] MEDS: TRICOR TAB 160 MG PO SCH (09:55)
[2021-02-16] MEDS: ZINC SULFATE PO SCH (09:55)
[2021-02-16] MEDS: PROTONIX INJ 40 MG VIAL IVP SCH (09:55)
[2021-02-16] MEDS: PULMICORT NEB TX 0.5 MG NEB SCH (10:10)
[2021-02-16] MEDS: BROVANA IN SCH (10:10)
[2021-02-16 11:04] LABS: ABG BASE EXCESS 7.6 mmol/L (-2.0-2.0)
[2021-02-16 11:07] LABS: ABG ALLEN TEST POS
[2021-02-16 12:14] VITALS: BP 129/60
== END 2021-02-16 16:00 | disposition home or self-care (01) | DRG 177 ==
LOC: ER 18:59 → OBS 01-31 03:00 → MED/SURG 01-31 17:42
PROVIDERS: ADMIT Internal Medicine; ATTEND Internal Medicine
DX: I10 Essential (primary) hypertension; R26.81 Unsteadiness on feet; E11.9 Type 2 diabetes mellitus without complications; I25.10 Atherosclerotic heart disease of native coronary artery without angina pectoris; J96.01 Acute respiratory failure with hypoxia; U07.1 COVID-19; E87.6 Hypokalemia; J12.81 Pneumonia due to SARS-associated coronavirus; F43.0 Acute stress reaction; F41.1 Generalized anxiety disorder; J93.11 Primary spontaneous pneumothorax; I25.2 Old myocardial infarction